=== PATIENT | female | born 1945 | race Caucasian/White ===

== ENCOUNTER 2016-03-08 14:38 | Emergency (ER) ==
[2016-03-08 14:47] VITALS: BP 121/80; TEMP 97.9; BMI 13.8
--- NOTE | 2016-03-08 15:20 | ED.PDOC ---
General ED Provider: Dr. NATASHA RUBIO Chief Complaint: Chest Wall Injury/Pain Stated Complaint: Right lower rib pain. Goes to epigastric area - heartburn. Denies falls. Movement and deep breathing makes worse. Time Seen by Physician: 15:05 Mode of Arrival: Walk-In Information Source: Patient Primary Care Provider: RUTHIE LEE Nursing and Triage Documentation Reviewed and Agree: Yes Review of Systems - Review Of Systems Constitutional: Reports: No symptoms Eyes: Reports: No symptoms Ears, Nose, Mouth, Throat: Reports: No symptoms Respiratory: Reports: No symptoms, Short of air. Denies: Cough, Orthopnea Cardiac: Reports: Chest pain (R lower rib cage) All Other Systems: Reviewed and Negative Past Medical History - Past Medical History Previously Healthy: No (COPD; multiple problems) Endocrine: Reports: None Cardiovascular: Reports: Hypertension Respiratory: Reports: COPD Hematological: Reports: None Gastrointestinal: Reports: None Genitourinary: Reports: None Neuro/Psych: Reports: Anxiety Musculoskeletal: Reports: Arthritis, Back Pain, Joint Pain Cancer: Reports: None Last Menstrual Period: unknown Other Pertinent Past Medical History: htn copd anx arth - Surgical History General Surgical History: Reports: Cholecystectomy, Orthopedic ( HIP,ANKLE ), Other (LUNG-FATTY MASS-RIGHT LUNG) - Family History Family History: Reports: Unknown - Social History Smoking Status: Current every day smoker, Heavy tobacco smoker Hx Substance Use: No Alcohol Screening: None Physical Exam - Physical Exam Appearance: Ill-appearing Ill-appearing: Moderate Eyes: KIMBERLY Respiratory: Airway patent, Breath sounds clear, Breath sounds equal GI/: Soft, Nontender Skin: Warm, Dry Neurological: Sensation intact, Motor intact Psychiatric: Affect appropriate, Mood appropriate Interpretation - EKG Interpretation Time of EKG #1: 15:36 Rate: Normal Rhythm: Sinus Ectopy: None [place]: NL ST Segment: Normal Interpretation: No acute changes Critical Care Note - Critical Care Note Total Time (mins): 15 Course - Course Hematology/Chemistry: 03/08/16 15:22 03/08/16 15:22 Orders, Labs, Meds: Lab Review 03/08/16 15:22 WBC 10.66 H RBC 3.93 L Hgb 12.0 Hct 35.5 L MCV 90.3 MCH 30.5 MCHC 33.8 RDW Coeff of Eddi 12.7 Plt Count 438 Immature Gran % (Auto) 0.8 Neut % (Auto) 76.4 Lymph % (Auto) 13.6 [place] % (Auto) 7.1 Eos % (Auto) 1.7 Baso % (Auto) 0.4 Immature Gran # (Auto) 0.1 Neut # 8.2 H Lymph # 1.5 [place]aine # 0.8 Eos # 0.2 Baso # 0.0 Sodium 139 Potassium 4.0 Chloride 102 Carbon Dioxide 28 Anion Gap 13.0 BUN 9 Creatinine 0.64 Estimated GFR (MDRD) 92.00 BUN/Creatinine Ratio 14.06 Glucose 97 Calcium 9.4 Total Bilirubin 0.29 AST 22 ALT 16 Alkaline Phosphatase 134 Troponin I 0.0100 Total Protein 7.1 Albumin 2.5 L Globulin 4.6 Albumin/Globulin Ratio 0.54 Orders Category Date Time Status EKG-(IP & OP ONLY) Stat CARDIO 03/08/16 15:18 Completed CBC W/ AUTO DIFF Stat LAB 03/08/16 15:22 Completed COMPREHENSIVE METABOLIC PANEL Stat LAB 03/08/16 15:22 Completed TROPONIN I Stat LAB 03/08/16 15:22 Completed Levofloxacin/D5w [Levaquin] 100 ml MEDS 03/08/16 17:09 Discontinued IV .STK-MED Levofloxacin/D5w [Levaquin] 500 mg MEDS 03/08/16 17:05 Discontinued Premix 100 ml D5w [address] CHEST W/CONTRAST Stat RADS 03/08/16 15:57 Completed RIBS, UNILATERAL RIGHT Stat RADS 03/08/16 15:17 Completed Medications Discontinued Medications Generic Name Dose Route Start Last Admin Trade Name Freq PRN Reason Stop Dose Admin Levofloxacin/Dextrose 500 mg/ 100 mls @ 100 mls/hr 03/08/16 17:05 03/08/16 17 :16 Dextrose IV 03/08/16 18:04 100 mls/hr ONCE STA Administration WBC at upper limits of normal with 76% neutrophils; Chest film suggests neoplasm vs consolidative pneumonia. [place] best to order CT with IV contrast as suggested by radiology versus follow up X Ray after interval treatment. Pt is a smoker with COPD history. CT shows extensive pneumonia RUL. Vital Signs: Temp Pulse Resp BP Pulse Ox 03/08/16 14:39 97.9 F 113 H 24 121/80 96 Departure - Departure Time of Disposition: 18:00 Disposition: HOME SELF-CARE Discharge Problem: Pneumonia Instructions: Pneumonia (ED) Condition: Stable Pt referred to PMD for follow-up: Yes (Call officer for appointment) Additional Instructions: Take antibiotic as prescribed. Must followup with primary care provider for resolution of pneumonia and follow up of upper lobe consolidation. Call office for appointment and advise them of the ER visit and need for followup. Prescriptions: Levofloxacin [Levaquin] 500 mg PO ONCE #7 tablet Allergies/Adverse Reactions: Allergies Penicillins Adverse Reaction (Verified 03/08/16 14:47) Pt reports "blacking out" Home Medications: Ambulatory Orders Albuterol Sulfate [Proair Hfa] 2 puff IH BID 09/29/12 Naproxen Sodium [Aleve] 220 mg PO BID PRN 09/29/12 Alprazolam 1 tab PO BID 02/10/14 Tiotropium [place] [Spiriva] 1 cap IH DAILY 02/10/14 Hydrocodone Bit/Acetaminophen [[place] 5-325] 1 each PO Q4HR PRN 01/23/16 Levofloxacin [Levaquin] 500 mg PO ONCE #7 tablet 03/08/16 Lisinopril 10 mg PO DAILY 03/08/16 Disposition Discussed With: Patient (Patient does not want admission; family aware of decision and plan for treatment)
[2016-03-08 15:27] LABS: BASOPHILS % (AUTO) 0.4 % (0.0-3.0); EOSINOPHILS # (AUTO) 0.2 K/ul (0.0-0.7); EOSINOPHILS % (AUTO) 1.7 % (0.0-7.0); HEMATOCRIT 35.5 % (37.0-47.0); IMMATURE GRANULOCYTE % (AUTO) 0.8 % (0.0-5.0); LYMPHOCYTES # (AUTO) 1.5 K/uL (0.60-3.4); LYMPHOCYTES % (AUTO) 13.6 (10.0-50.0); MEAN CORPUSCULAR HEMOGLOBIN 30.5 pg (27.0-31.0); MEAN CORPUSCULAR HGB CONC 33.8 (31.8-35.4); MEAN CORPUSCULAR VOLUME 90.3 fl (81.0-99.0); MONOCYTES # (AUTO) 0.8 K/uL (0.4-2.0); MONOCYTES % (AUTO) 7.1 (0-10); NEUTROPHILS # (AUTO) 8.2 K/ul (2.0-6.9); NEUTROPHILS % (AUTO) 76.4; PLATELET COUNT 438 10^3/uL (140-440); RED BLOOD COUNT 3.93 10^6/ul (4.20-5.40); WHITE BLOOD COUNT 10.66 K/ul (4.6-10.2)
--- NOTE | 2016-03-08 15:49 | DI ---
EXAM: Three views of the right ribs HISTORY: Pain in the lower right ribs. COMPARISON: Chest x-ray 01/23/[address] chest 12/04/2015 FINDINGS: There is a new mass-like consolidation in the right upper lobe. There is right apical ple ural thickening unchanged from prior exam. Surgical changes are redemonstrated in the right lung. The left lung is hyperinflated. Cardiomediastinal silhouette is unremarkable. The right ribs are p oorly evaluated due to hyperinflation, consolidation and bone demineralization IMPRESSION: 1. Mass-like consolidation in the right upper lobe may represent consolidative pneumonia versus jenny plasm. Follow-up CT chest with contrast versus follow-up x-ray after interval treatment is recommen ded. 2. The osseous structures are poorly evaluated due to hyperinflated lungs and bony demineralization . No definitive rib fracture is identified.
[2016-03-08 15:54] LABS: ALBUMIN 2.5 g/dL (3.4-5.0); ALBUMIN/GLOBULIN RATIO 0.54; BILIRUBIN,TOTAL 0.29 mg/dL (0.00-1.20); BUN/CREATININE RATIO 14.06; CALCIUM 9.4 mg/dL (8.2-10.2); CREATININE 0.64 mg/dL (0.60-1.30); TOTAL PROTEIN 7.1 g/dL (5.8-8.1); TROPONIN I 0.01 ng/ml (0.0000-0.4000)
--- NOTE | 2016-03-08 16:49 | CT ---
EXAM: CT chest with contrast HISTORY: Mass-like consolidation, right upper lobe TECHNIQUE: Multi-slice transaxial helical with coronal and sagittal reformed images CONTRAST: Intravenous Omnipaque 350, 75 mL COMPARISON: CT chest from 12/04/2015 FINDINGS: The aorta is minimally atherosclerotic. The aorta maintains normal caliber. The heart si ze is normal. No pericardial or pleural effusions are appreciated. A precarinal lymph node is enla rged up to 1.2 cm short axis. A right hilar lymph node is 1.9 x 1.6 cm. Additional sub centimeter mediastinal lymph nodes are detected. No left hilar lymphadenopathy detected. The lungs are severely emphysematous. There is significant consolidation in the right upper lobe. There has been previous right thoracotomy with probable partial resection of the middle lobe. The l eft lung is clear. The solid abdominal organs are grossly normal their visualized portions of the upper abdomen. The g allbladder is surgically absent. The bones are free of suspicious osteolytic or osteoblastic lesions. Old healed right rib fractures are noted. The bones are osteopenic. Multiple chronic thoracic compression deformities are unchan ged. IMPRESSION: 1. Extensive pneumonia in the right upper lobe with probable reactive right hilar lymphadenopathy a nd mediastinal lymphadenopathy. Short-term follow-up recommended as underlying malignancy cannot be excluded 2. Severe emphysema. 3. Suggestion of previous partial pneumonectomy involving the middle lobe. 4. ASCVD. 5. Osteopenia with multiple chronic thoracic compression deformities.
[2016-03-08] MEDS ORDERED: LEVAQUIN 500 MG in PREMIX 100 ML D5W 1 BAG IV STA (17:05)
[2016-03-08] MEDS ORDERED: LEVAQUIN 100 ML IV ONE (17:09)
== END 2016-03-08 18:18 | disposition home or self-care (01) ==
LOC: ED 14:38
DX: J18.9 Pneumonia, unspecified organism (principal); I10 Essential (primary) hypertension; J44.9 Chronic obstructive pulmonary disease, unspecified; F17.210 Nicotine dependence, cigarettes, uncomplicated; Z79.899 Other long term (current) drug therapy
CPT/HCPCS: 36415; 80053; 84484; 85025; 93005; 93010; 96365; 99283

== ENCOUNTER 2016-05-30 11:54 | Outpatient (CLI) ==
--- NOTE | 2016-05-30 12:50 | CT ---
EXAM: CT of the chest without contrast History: Abnormal chest radiograph, chest pain. Comparison: Chest CT 03/08/2016 Technique: Multiplanar CT images through the thorax were obtained without the administration of IV contrast Findings: Extensive right upper lobe consolidation again noted with the volume of consolidation pro bably slightly decreased compared to the prior study but there is increased in volume loss within th e right upper lobe most likely due to retraction and scarring. Emphysema again noted which is severe . Postsurgical changes again seen involving the right middle lobe. Heart size is normal. Mild coronary calcifications. Great vessels are grossly unremarkable on this limited noncontrast exam. No pathologically enlarged axillary lymph nodes. Evaluation for mediast inal and hilar lymph nodes is limited due to the lack of contrast administration but no bulky adenop athy is seen. Within the visualized upper abdomen, no grossly acute findings. No significant interval change in t he spinal compression deformities. There is osseous irregularity of a few anterior right ribs most likely related to subacute fractures. Impression: 1. Extensive right upper lobe consolidation again noted with the volume of the consolidation slightl y decreased. However, there is an increase in volume loss within the right upper lobe most likely du e to retraction and scarring. 2. Severe emphysema again noted.
== END 2016-05-30 11:55 | disposition home or self-care (01) ==
LOC: RAD 11:54
PROVIDERS: ATTEND Internal Medicine Pulmonary Disease
DX: R91.8 Other nonspecific abnormal finding of lung field (principal)

== ENCOUNTER 2016-07-08 17:00 | Emergency (ER) ==
[2016-07-08 17:06] VITALS: BP 135/81; TEMP 98.7; BMI 14.2
[2016-07-08] MEDS ORDERED: GI COCKTAIL PO STA (17:15)
[2016-07-08 17:41] LABS: BASOPHILS % (AUTO) 0.3 % (0.0-3.0); EOSINOPHILS # (AUTO) 0.5 K/ul (0.0-0.7); EOSINOPHILS % (AUTO) 6.7 % (0.0-7.0); HEMATOCRIT 42.8 % (37.0-47.0); HEMOGLOBIN 14.4 g/dl (12.0-16.0); IMMATURE GRANULOCYTE % (AUTO) 0.3 % (0.0-5.0); LYMPHOCYTES # (AUTO) 2.5 K/uL (0.60-3.4); LYMPHOCYTES % (AUTO) 35.4 (10.0-50.0); MEAN CORPUSCULAR HEMOGLOBIN 30.1 pg (27.0-31.0); MEAN CORPUSCULAR HGB CONC 33.6 (31.8-35.4); MEAN CORPUSCULAR VOLUME 89.5 fl (81.0-99.0); MONOCYTES # (AUTO) 0.9 K/uL (0.4-2.0); MONOCYTES % (AUTO) 12.6 (0-10); NEUTROPHILS # (AUTO) 3.1 K/ul (2.0-6.9); NEUTROPHILS % (AUTO) 44.7; PLATELET COUNT 188 10^3/uL (140-440); RED BLOOD COUNT 4.78 10^6/ul (4.20-5.40); WHITE BLOOD COUNT 7.01 K/ul (4.6-10.2)
--- NOTE | 2016-07-08 17:41 | CT ---
EXAM: CT chest without contrast HISTORY: Chest pain after eating donut TECHNIQUE: Multi-slice transaxial helical with coronal and sagittal reformed images CONTRAST: None COMPARISON: CT chest from 05/30/2016 FINDINGS: The aorta is atherosclerotic. The ascending aorta is ectatic to 32 mm. The aortic arch a nd descending thoracic aorta have normal caliber. The heart size is normal. No pericardial or pleu ral effusions are detected. No suspicious lymphadenopathy is appreciated. Volume loss in the right upper lobe lung fibrosis is unchanged. Air bronchograms are associated. The lungs are moderately to severely emphysematous.. There is calcified pleural plaque in the right lung. No suspicious nod ules or masses are detected. Please refer to the CT abdomen report for details in this region. The bones are free of suspicious osteolytic or osteoblastic lesions. Old healed right rib fractures are noted. Chronic compression fractures between T6 and T9 are unchanged with secondary increased thoracic kyphosis. Additional chronic fractures are noted at T12 and L1. The bones are osteopenic. IMPRESSION: 1. Fibrosis and chronic volume loss in the right upper lobe. 2. Moderate severe emphysema. 3. No acute cardiopulmonary disease.
--- NOTE | 2016-07-08 17:44 | CT ---
Exam: CT scan of the abdomen pelvis without contrast. Date: 07/08/2016. Comparison: 07/27/2015. HISTORY: Pain after eating. TECHNIQUE: Helical scan of the abdomen pelvis was performed without contrast. FINDINGS: The lung bases are clear. There is a levoscoliotic curve in the lumbar spine with multil evel degenerative changes. There are compression deformities of T12 and L1 that appear to be old. A left hip arthroplasty is present. The spleen and liver have a uniform attenuation; there is elongation of the left lobe of the liver w hich is a normal variant. The stomach, pancreas and adrenal glands appear normal. The kidneys have a normal morphology. No calculi or hydronephrosis is seen. No retroperitoneal adenopathy is prese nt. Aorta has peripheral calcification and does not exceed 3 cm. The small bowel and colon appear w ithin normal limits. Streak artifact from the left hip arthroplasty obscures the findings in the pe lvis. The inguinal regions are normal. Impression: Image detail is limited due to a lack of oral and intravenous contrast, with incomplete evaluation of the contents of the pelvis as a consequence of extensive streak artifact from the lef t hip arthroplasty. No acute findings are observed. Compression deformities of T12 and L1 that appear to be old. If further evaluation of this finding is needed then MRI may be of value. .
[2016-07-08 18:07] LABS: ALANINE AMINOTRANSFERASE 14 U/L (12-78); ALBUMIN 3.6 g/dL (3.4-5.0); ALBUMIN/GLOBULIN RATIO 1.13; ALKALINE PHOSPHATASE 84 U/L (53-141); AMYLASE 90 U/L (25-115); ANION GAP 13.1; ASPARTATE AMINO TRANSFERASE 20 U/L (15-37); BILIRUBIN,TOTAL 0.56 mg/dL (0.00-1.20); BLOOD UREA NITROGEN 13 mg/dL (7-18); CALCIUM 10.1 mg/dL (8.2-10.2); CARBON DIOXIDE 25 mmol/L (23-31); CHLORIDE 106 mmol/L (98-107); CREATINE KINASE 43 U/L; CREATININE 0.73 mg/dL (0.60-1.30); GLUCOSE 74 mg/dL (82-115); LIPASE 57 U/L (8-78); POTASSIUM 4.1 mmol/L (3.5-5.10); SODIUM 140 mmol/L (136-145); TOTAL PROTEIN 6.8 g/dL (5.8-8.1)
--- NOTE | 2016-07-08 18:31 | ED.PDOC ---
General ED Provider: Dr. HAYDEN GUPTA-ER Chief Complaint: Non-specific Complaint Stated Complaint: i ate a doughnut and it "got stuck"--it hurts anytime i swallow food or drink Time Seen by Physician: 17:05 Mode of Arrival: Walk-In Information Source: Patient, Family Exam Limitations: No limitations Primary Care Provider: RUTHIE LEE Nursing and Triage Documentation Reviewed and Agree: Yes GI Complaint Exam - Abdominal Pain Complaint/Exam Onset: Gradual Duration: 2 dasys Symptoms Are: Still present Timing: Intermittent Initial Severity: Mild Current Severity: Mild Location of Pain: Epigastric Character: Reports: Dull, Aching Aggravating: Reports: Food, Eating Alleviating: Reports: Spontaneous resolution Associated Signs and Symptoms: Denies: Diaphoresis, Fever, Cough, Chest pain, Dizziness, Back pain, Constipation, Blood in stool, Dysuria, Urinary frequency, Decreased urine output, Decreased appetite, Vaginal bleeding, Vaginal discharge , Nausea, Vomiting, Diarrhea, Sore throat, Decreased activity AAA Risk Factors: Reports: None Patient Rh Status: Unknown Abdominal Findings: Present: None Differential Diagnoses: Constipation, Pancreatitis, Other Quality Indicator For Non-Traumatic Chest Pain/Syncope: EKG Performed Review of Systems - Review Of Systems Constitutional: Reports: No symptoms Eyes: Reports: No symptoms Ears, Nose, Mouth, Throat: Reports: No symptoms Respiratory: Reports: No symptoms Cardiac: Reports: No symptoms GI: Reports: Abdominal pain : Reports: No symptoms Musculoskeletal: Reports: No symptoms Skin: Reports: No symptoms Neurological: Reports: No symptoms Endocrine: Reports: No symptoms Hematologic/Lymphatic: Reports: No symptoms All Other Systems: Reviewed and Negative Past Medical History - Past Medical History Previously Healthy: No (COPD; multiple problems) Endocrine: Reports: None Cardiovascular: Reports: Hypertension Respiratory: Reports: COPD Hematological: Reports: None Gastrointestinal: Reports: None Genitourinary: Reports: None Neuro/Psych: Reports: Anxiety Musculoskeletal: Reports: Arthritis, Back Pain, Joint Pain Cancer: Reports: None Last Menstrual Period: n/a Other Pertinent Past Medical History: htn copd anx arth - Surgical History General Surgical History: Reports: Cholecystectomy, Orthopedic ( HIP,ANKLE ), Other (LUNG-FATTY MASS-RIGHT LUNG) - Family History Family History: Reports: Unknown - Social History Smoking Status: Current every day smoker, Heavy tobacco smoker Hx Substance Use: No Alcohol Screening: None Physical Exam - Physical Exam Appearance: Well-appearing, No pain distress, Well-nourished Pain Distress: Mild Eyes: KIMBERLY, EOMI, Conjunctiva clear ENT: Ears normal, Nose normal, Oropharynx normal Neck: Supple Respiratory: Airway patent, Breath sounds clear, Breath sounds equal, Respirations nonlabored Cardiovascular: RRR, Pulses normal, No rub, No murmur GI/: Soft Musculoskeletal: Normal strength, ROM intact, No edema, No calf tenderness Skin: Warm, Dry, Normal color Neurological: Sensation intact, Motor intact, Reflexes intact, Cranial nerves intact, Alert, Oriented Psychiatric: Affect appropriate, Mood appropriate Interpretation - Radiology Interpretation Radiology Interpretation By: Radiologist Radiology Results: Negative Exam Interpreted: CT Scan - EKG Interpretation Time of EKG #1: 18:31 Rate: Normal Rhythm: Sinus Ectopy: None [place]: NL ST Segment: Normal Re-Evaluation - Re-Evaluation Time of Re-Evaluation: 18:31 Status: Improved Vital Signs Stable: Yes Pain Level: 1 Appearance: NAD Lungs: Clear Skin: Warm and Dry Neuro: Alert and Oriented X3 CV: RRR Critical Care Note - Critical Care Note Total Time (mins): 0 Course - Course Hematology/Chemistry: 07/08/16 17:30 07/08/16 17:30 Orders, Labs, Meds: Lab Review 07/08/16 17:30 WBC 7.01 RBC 4.78 Hgb 14.4 Hct 42.8 MCV 89.5 MCH 30.1 MCHC 33.6 RDW Coeff of Eddi 13.3 Plt Count 188 Immature Gran % (Auto) 0.3 Neut % (Auto) 44.7 Lymph % (Auto) 35.4 [place] % (Auto) 12.6 H Eos % (Auto) 6.7 Baso % (Auto) 0.3 Immature Gran # (Auto) 0.0 Neut # 3.1 Lymph # 2.5 [place] # 0.9 Eos # 0.5 Baso # 0.0 Sodium 140 Potassium 4.1 Chloride 106 Carbon Dioxide 25 Anion Gap 13.1 BUN 13 Creatinine 0.73 Estimated GFR (MDRD) 79.00 BUN/Creatinine Ratio 17.80 Glucose 74 L Calcium 10.1 Total Bilirubin 0.56 AST 20 ALT 14 Alkaline Phosphatase 84 Total Creatine Kinase 43 Troponin I < 0.0100 Total Protein 6.8 Albumin 3.6 Globulin 3.2 Albumin/Globulin Ratio 1.13 Amylase 90 Lipase 57 Orders Category Date Time Status EKG-(ED ONLY) Stat CARDIO 07/08/16 17:14 Completed AMYLASE Stat LAB 07/08/16 17:30 Completed CBC W/ AUTO DIFF Stat LAB 07/08/16 17:30 Completed COMPREHENSIVE METABOLIC PANEL Stat LAB 07/08/16 17:30 Completed CREATINE KINASE Stat LAB 07/08/16 17:30 Completed LIPASE Stat LAB 07/08/16 17:30 Completed TROPONIN I Stat LAB 07/08/16 17:30 Completed Mag-Al Plus//Lidocaine [Gi Cocktail] MEDS 07/08/16 17:15 Discontinued 30 ml PO ONCE STA CT ABDOMEN/PELVIS WO CONTRAST Stat RADS 07/08/16 17:[address] CHEST W/O CONTRAST Stat RADS 07/08/16 17:15 Completed Medications Discontinued Medications Generic Name Dose Route Start Last Admin Trade Name Freq PRN Reason Stop Dose Admin Al Hydroxide/Mg Hydroxide 30 ml 07/08/16 17:15 07/08/16 17:37 Gi Cocktail PO 07/08/16 17:16 30 ml ONCE STA Administration Vital Signs: Temp Pulse Resp BP Pulse Ox 07/08/16 17:03 98.7 F 100 H 14 135/81 96 Departure - Departure Time of Disposition: 18:31 Disposition: HOME SELF-CARE Discharge Problem: Esophagitis Dysphagia Qualifiers: Dysphagia type: unspecified Qualifier Code: (R13.10) Dysphagia, unspecified Instructions: Esophageal Spasm (ED), Dysphagia (ED) Condition: Good Pt referred to PMD for follow-up: Yes Additional Instructions: stop alleve--protonix 40mg q daily #30--carafate 1gr tid #30--f/u with dr garcia- -consider endoscopy if not done recently Allergies/Adverse Reactions: Allergies Penicillins Adverse Reaction (Verified 07/08/16 17:06) Pt reports "blacking out" Home Medications: Ambulatory Orders Albuterol Sulfate [Proair Hfa] 2 puff IH BID 09/29/12 Naproxen Sodium [Aleve] 220 mg PO BID PRN 09/29/12 Alprazolam 1 tab PO BID 02/10/14 Tiotropium [place] [Spiriva] 1 cap IH DAILY 02/10/14 Hydrocodone Bit/Acetaminophen [[place] 5-325] 1 each PO Q4HR PRN 01/23/16 Lisinopril 10 mg PO DAILY 03/08/16 Disposition Discussed With: Patient, Family
== END 2016-07-08 18:44 | disposition home or self-care (01) ==
LOC: ED 17:00
DX: K20.9 Esophagitis, unspecified (principal); R13.10 Dysphagia, unspecified; R10.13 Epigastric pain; F17.200 Nicotine dependence, unspecified, uncomplicated
CPT/HCPCS: 36415; 80053; 82150; 82550; 83690; 84484; 85025; 93005; 93010; 99283

== ENCOUNTER 2016-09-16 22:04 | Emergency (ER) ==
[2016-09-16 22:14] VITALS: BP 134/84; TEMP 97.9; BMI 14.6
--- NOTE | 2016-09-16 22:28 | ED.PDOC ---
General ED Provider: Dr. RUTHIE LEE Chief Complaint: Shoulder Pain/Injury Stated Complaint: Been hurting in the rt shoulder for 3 weeks, no injury hurts to raise the rt shoulder, Time Seen by Physician: 22:25 Mode of Arrival: Walk-In Information Source: Patient Primary Care Provider: ALIZA BERG Nursing and Triage Documentation Reviewed and Agree: Yes Musculoskeletal Complaint Exam - Shoulder Pain Complaint/Exam Mechanism of Injury: Reports: No known trauma Symptoms Are: Still present Timing: Constant Initial Severity: Moderate Current Severity: Moderate Location: Reports: Discrete Character: Reports: Aching, Throbbing Alleviating: Reports: None Aggravating: Reports: Movement, Lifting, Flexion, Extension Associated Signs and Symptoms: Denies: Swelling, Redness, Bruising, Fever, Weakness, Numbness, Tingling Non-Orthopedic Risk Factors: Reports: None DVT Risk Factors: Reports: None Septic Arthritis Risk Factors: Reports: None Related Surgical History: Reports: None Shoulder Findings: Absent: Swelling, Ecchymosis, Abnormal contour Tenderness: Present: AC joint, Proximal humerus Limited Range of Motion: Present: Abduction, Flexion, Extension, External rotation Differential Diagnoses: Arthritis, Closed Fracture, Sprain Review of Systems - Review Of Systems Constitutional: Reports: No symptoms Eyes: Reports: No symptoms Ears, Nose, Mouth, Throat: Reports: No symptoms Respiratory: Reports: No symptoms Cardiac: Reports: No symptoms GI: Reports: No symptoms : Reports: No symptoms Musculoskeletal: Reports: Joint pain Skin: Reports: No symptoms Neurological: Reports: No symptoms Endocrine: Reports: No symptoms Hematologic/Lymphatic: Reports: No symptoms All Other Systems: Reviewed and Negative Past Medical History - Past Medical History Previously Healthy: No (COPD; multiple problems) Endocrine: Reports: None Cardiovascular: Reports: Hypertension Respiratory: Reports: COPD Hematological: Reports: None Gastrointestinal: Reports: None Genitourinary: Reports: None Neuro/Psych: Reports: Anxiety Musculoskeletal: Reports: Arthritis, Back Pain, Joint Pain Cancer: Reports: None Last Menstrual Period: PT HAS HAD A HYSTERECTOMY Other Pertinent Past Medical History: htn copd anx arth - Surgical History General Surgical History: Reports: Cholecystectomy, Orthopedic ( HIP,ANKLE ), Other (LUNG-FATTY MASS-RIGHT LUNG) - Family History Family History: Reports: Unknown - Social History Smoking Status: Current every day smoker, Light tobacco smoker Hx Substance Use: No Alcohol Screening: None - Immunizations Tetanus Shot up to Date: Yes Physical Exam - Physical Exam Appearance: Ill-appearing, Thin Pain Distress: Moderate Eyes: KIMBERLY, EOMI, Conjunctiva clear ENT: Ears normal, Nose normal, Oropharynx normal Respiratory: Airway patent, Breath sounds clear, Breath sounds equal, Respirations nonlabored Cardiovascular: RRR, Pulses normal, No rub, No murmur GI/: Soft, Nontender, No masses, Bowel sounds normal, No Organomegaly Musculoskeletal: No edema, No calf tenderness, Limited ROM, Limited strength Skin: Warm, Dry, Normal color Neurological: Sensation intact, Motor intact, Reflexes intact, Cranial nerves intact, Alert, Oriented Psychiatric: Affect appropriate, Mood appropriate Interpretation - Radiology Interpretation Radiology Interpretation By: Radiologist Radiology Results: Negative Exam Interpreted: CT Scan Critical Care Note - Critical Care Note Total Time (mins): 0 Course - Course Orders, Labs, Meds: Orders Category Date Time Status Ketorolac Tromethamine [Toradol] MEDS 09/16/16 23:22 Stat 30 mg IM ONCE STA CT SHOULDER RIGHT W/O CONTRAST Stat RADS 09/16/16 22:19 Completed Vital Signs: Temp Pulse Resp BP Pulse Ox 09/16/16 22:05 97.9 F 90 20 134/84 98 Departure - Departure Time of Disposition: 23:23 Disposition: HOME SELF-CARE Discharge Problem: Shoulder pain Instructions: Shoulder Pain (ED) Condition: Good Pt referred to PMD for follow-up: Yes Additional Instructions: rest hot pack keep taking pain medications f/u dr Berg for further evaluation Allergies/Adverse Reactions: Allergies Penicillins Adverse Reaction (Verified 09/16/16 22:14) Pt reports "blacking out" Home Medications: Ambulatory Orders Albuterol Sulfate [Proair Hfa] 2 puff IH BID 09/29/12 Naproxen Sodium [Aleve] 220 mg PO BID PRN 09/29/12 Alprazolam 1 tab PO BID 02/10/14 Tiotropium [place] [Spiriva] 1 cap IH DAILY 02/10/14 Hydrocodone Bit/Acetaminophen [[place] 5-325] 1 each PO TID PRN 01/23/16 Disposition Discussed With: Patient
--- NOTE | 2016-09-16 23:14 | CT ---
EXAM: CT of the right shoulder without contrast. HISTORY: Shoulder pain. PROCEDURE: Contiguous axial CT images of the right shoulder without contrast with coronal and sagit lenin reformats. FINDINGS: The bones are intact with no evidence of fracture. The joint spaces are maintained. No ev idence of a destructive bone lesion. No soft tissue abnormality. There is extensive consolidation in the right upper lobe. There are severe emphysematous changes in the visualized portion of the ri ght lung. Impression: Negative CT of the right shoulder. Extensive consolidation in the right lung/upper lobe. Please see report from CT chest of 08/28/2016 for further details. Chronic obstructive pulmonary disease.
[2016-09-16] MEDS: TORADOL IM STA (23:52)
== END 2016-09-16 23:59 | disposition home or self-care (01) ==
LOC: ED 22:04
DX: M25.511 Pain in right shoulder (principal); F17.210 Nicotine dependence, cigarettes, uncomplicated
CPT/HCPCS: 96372; 99282

== ENCOUNTER 2016-11-25 10:08 | Emergency (ER) ==
[2016-11-25 10:13] VITALS: BP 179/90; TEMP 97.5; BMI 13.5
--- NOTE | 2016-11-25 10:24 | ED.PDOC ---
General ED Provider: Dr. CIELO SALOMON Chief Complaint: Hip Pain/Injury Stated Complaint: HIP PAIN LEFT Time Seen by Physician: 10:10 Mode of Arrival: Walk-In Information Source: Patient Exam Limitations: No limitations Primary Care Provider: ALIZA BERG Nursing and Triage Documentation Reviewed and Agree: Yes Musculoskeletal Complaint Exam - Hip/Pelvis Complaint/Exam Location of Pain: Reports: Left, Hip Mechanism of Injury: Reports: Trauma Onset/Duration: FALL 1 WEEK AGO Symptoms Are: Still present Initial Severity: Mild Current Severity: Mild Location: Reports: Discrete Character: Reports: Aching Aggravating: Reports: Movement Alleviating: Reports: Rest, Position Associated Signs and Symptoms: Denies: Swelling, Redness, Bruising, Fever, Weakness, Dizziness, Syncope, Abdominal pain, Knee pain Related History: Reports: Similar episode Able to Bear Weight: Yes Pelvis Palpation: Stable Differential Diagnoses: Sprain, Strain Review of Systems - Review Of Systems Constitutional: Reports: No symptoms Eyes: Reports: No symptoms Ears, Nose, Mouth, Throat: Reports: No symptoms Respiratory: Reports: No symptoms Cardiac: Reports: No symptoms GI: Reports: No symptoms : Reports: No symptoms Musculoskeletal: Reports: Joint pain (LEFT HIP) Skin: Reports: No symptoms Neurological: Reports: No symptoms Endocrine: Reports: No symptoms Hematologic/Lymphatic: Reports: No symptoms All Other Systems: Reviewed and Negative Past Medical History - Past Medical History Previously Healthy: No (COPD; multiple problems) Endocrine: Reports: None Cardiovascular: Reports: Hypertension Respiratory: Reports: COPD Hematological: Reports: None Gastrointestinal: Reports: None Genitourinary: Reports: None Neuro/Psych: Reports: Anxiety Musculoskeletal: Reports: Arthritis, Back Pain, Joint Pain Cancer: Reports: None Last Menstrual Period: NONE Other Pertinent Past Medical History: htn copd anx arth - Surgical History General Surgical History: Reports: Cholecystectomy, Orthopedic ( HIP,ANKLE ), Other (LUNG-FATTY MASS-RIGHT LUNG) - Family History Family History: Reports: Unknown - Social History Smoking Status: Current every day smoker, Light tobacco smoker Hx Substance Use: No Alcohol Screening: None Physical Exam - Physical Exam Appearance: Well-appearing, No pain distress, Well-nourished Eyes: KIMBERLY, EOMI, Conjunctiva clear ENT: Ears normal, Nose normal, Oropharynx normal Respiratory: Airway patent, Breath sounds clear, Breath sounds equal, Respirations nonlabored Cardiovascular: RRR, Pulses normal, No rub, No murmur GI/: Soft, Nontender, No masses, Bowel sounds normal, No Organomegaly Musculoskeletal: Normal strength, ROM intact, No edema, No calf tenderness Skin: Warm, Dry, Normal color Neurological: Sensation intact, Motor intact, Reflexes intact, Cranial nerves intact, Alert, Oriented Psychiatric: Affect appropriate, Mood appropriate Interpretation - Radiology Interpretation Radiology Interpretation By: Radiologist Critical Care Note - Critical Care Note Total Time (mins): 0 Course - Course Vital Signs: Temp Pulse Resp BP Pulse Ox 11/25/16 10:09 97.5 F L 100 H 20 179/90 H 97 Departure - Departure Time of Disposition: 10:24 Disposition: HOME SELF-CARE Discharge Problem: Hip pain Instructions: Hip Pain (ED) Condition: Good Pt referred to PMD for follow-up: Yes Additional Instructions: Please call your Family Physician as soon as possible to schedule a follow-up appointment. Allergies/Adverse Reactions: Allergies Penicillins Adverse Reaction (Verified 11/25/16 10:13) Pt reports "blacking out" Home Medications: Ambulatory Orders Albuterol Sulfate [Proair Hfa] 2 puff IH BID 09/29/12 Alprazolam 1 tab PO BID 02/10/14 Tiotropium [place] [Spiriva] 1 cap IH DAILY 02/10/14 Hydrocodone Bit/Acetaminophen [[place] 5-325] 1 each PO TID PRN 01/23/16 Disposition Discussed With: Patient
[2016-11-25] MEDS ORDERED: NORCO 10-325 PO STA (10:26)
--- NOTE | 2016-11-25 10:56 | DI ---
EXAM: Radiographs, pelvis HISTORY: Pelvic pain. COMPARISON: CT 07/08/2016. Radiograph 05/09/2015 TECHNIQUE: Single frontal view. FINDINGS: The bones are demineralized. Left hip arthroplasty changes noted. No fracture or disloca tion identified. Soft tissues are unremarkable. Since the prior study, there has been no significant interval change. IMPRESSION: No fracture or dislocation.
--- NOTE | 2016-11-25 10:57 | DI ---
EXAM: Radiographs, left hip HISTORY: Left hip pain. COMPARISON: Pelvic CT 07/08/2016. Radiograph 05/09/2015. TECHNIQUE: Frontal and lateral views. FINDINGS: Left total hip arthroplasty hardware components appear well seated. No fracture or disloc ation identified. Soft tissues are unremarkable. Since the prior study, there has been no significa nt interval change. IMPRESSION: No acute abnormality of the left hip.
== END 2016-11-25 11:02 | disposition home or self-care (01) ==
LOC: ED 10:08
DX: M25.552 Pain in left hip (principal); F17.210 Nicotine dependence, cigarettes, uncomplicated
CPT/HCPCS: 99282

== ENCOUNTER 2016-12-31 15:03 | Outpatient (CLI) ==
[2016-12-31 15:22] LABS: BASOPHILS # (AUTO) 0.1 K/uL (0-0.2); BASOPHILS % (AUTO) 0.7 % (0.0-3.0); EOSINOPHILS # (AUTO) 0.8 K/ul (0.0-0.7); EOSINOPHILS % (AUTO) 11.5 % (0.0-7.0); HEMATOCRIT 45.3 % (37.0-47.0); HEMOGLOBIN 15.4 g/dl (12.0-16.0); IMMATURE GRANULOCYTE % (AUTO) 0.1 % (0.0-5.0); LYMPHOCYTES # (AUTO) 2.6 K/uL (0.60-3.4); LYMPHOCYTES % (AUTO) 37.1 (10.0-50.0); MEAN CORPUSCULAR HEMOGLOBIN 31.2 pg (27.0-31.0); MEAN CORPUSCULAR VOLUME 91.7 fl (81.0-99.0); MONOCYTES # (AUTO) 0.8 K/uL (0.4-2.0); MONOCYTES % (AUTO) 11.1 (0-10); NEUTROPHILS # (AUTO) 2.7 K/ul (2.0-6.9); NEUTROPHILS % (AUTO) 39.5; PLATELET COUNT 195 10^3/uL (140-440); RED BLOOD COUNT 4.94 10^6/ul (4.20-5.40); WHITE BLOOD COUNT 6.87 K/ul (4.6-10.2)
[2016-12-31 16:18] LABS: ALBUMIN 3.6 g/dL (3.4-5.0); ALBUMIN/GLOBULIN RATIO 0.97; ANION GAP 11.2; BILIRUBIN,TOTAL 0.66 mg/dL (0.00-1.20); BUN/CREATININE RATIO 16.9; CHOL/HDL RATIO 3.3 (4.5-5.5); CREATININE 0.71 mg/dL (0.60-1.30); POTASSIUM 4.2 mmol/L (3.5-5.10); TOTAL PROTEIN 7.3 g/dL (5.8-8.1)
== END 2016-12-31 15:04 | disposition home or self-care (01) ==
LOC: LAB 15:03
PROVIDERS: ATTEND Internal Medicine
DX: J44.9 Chronic obstructive pulmonary disease, unspecified (principal); I10 Essential (primary) hypertension; M81.0 Age-related osteoporosis without current pathological fracture; I25.10 Atherosclerotic heart disease of native coronary artery without angina pectoris; M19.90 Unspecified osteoarthritis, unspecified site; F41.1 Generalized anxiety disorder
CPT/HCPCS: 36415; 80053; 80061; 82607; 84443; 85025

== ENCOUNTER 2017-04-29 14:41 | Outpatient (CLI) | END 2017-04-29 14:42 | disposition home or self-care (01) | LOC: LAB 14:41 | PROVIDERS: ATTEND Internal Medicine | DX: E03.9 Hypothyroidism, unspecified (principal); I10 Essential (primary) hypertension; J44.9 Chronic obstructive pulmonary disease, unspecified; R91.8 Other nonspecific abnormal finding of lung field | CPT/HCPCS: 36415; 80053; 80061; 83036; 84443; 85025 ==

== ENCOUNTER 2017-05-05 12:55 | Emergency (ER) ==
[2017-05-05 13:08] VITALS: BP 170/87; TEMP 99; BMI 14.6
--- NOTE | 2017-05-05 13:48 | CT ---
EXAM: CT of the chest without contrast History: Chest wall trauma. Comparison: Chest CT 02/19/2017 Technique: Multiplanar CT images through the thorax were obtained without the administration of IV co ntrast Findings: Heart size is normal. No pericardial effusion. No pathologically enlarged thoracic lymph nodes. Great vessels are unremarkable. Emphysema again noted. No change in the chronic right upper lobe scarring and consolidation with bronchiectasis and cavitation. No significant interval change i n the 1.4 cm right lateral lower lung pleural based nodular density. Resolved lingular nodular densi ty. No developing lung opacities. No pneumothorax. Within the visualized upper abdomen, no acute findings. Osteopenia. No change in the chronic compre ssion deformities within the spine. Impression: 1. No new acute intrathoracic findings. 2. Stable chronic right upper lobe infiltrate. 3. No change in the right lateral lower lung pleural based nodular density. Recommend follow-up [facility] CT in 6 months. 4. Emphysema
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
== END 2017-05-05 14:17 | disposition home or self-care (01) ==
LOC: ED 12:55
DX: R07.89 Other chest pain (principal); X50.9XXA Other and unspecified overexertion or strenuous movements or postures, initial encounter; F17.210 Nicotine dependence, cigarettes, uncomplicated
CPT/HCPCS: 99283

== ENCOUNTER 2017-09-08 10:41 | Outpatient (CLI) | END 2017-09-08 10:42 | disposition home or self-care (01) | LOC: LAB 10:41 | PROVIDERS: ATTEND Internal Medicine | DX: E03.9 Hypothyroidism, unspecified (principal); E53.8 Deficiency of other specified B group vitamins; I10 Essential (primary) hypertension; J44.9 Chronic obstructive pulmonary disease, unspecified; F17.210 Nicotine dependence, cigarettes, uncomplicated | CPT/HCPCS: 36415; 80053; 80061; 83036; 84439; 84443; 85025 ==

== ENCOUNTER 2017-09-12 17:54 | Emergency (ER) ==
[2017-09-12 17:59] VITALS: BP 123/89; TEMP 98.5; BMI 13.9
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
== END 2017-09-12 18:25 | disposition home or self-care (01) ==
LOC: ED 17:54
DX: S73.102A Unspecified sprain of left hip, initial encounter (principal); V43.62XA Car passenger injured in collision with other type car in traffic accident, initial encounter; F17.210 Nicotine dependence, cigarettes, uncomplicated
CPT/HCPCS: 99283

== ENCOUNTER 2017-09-19 09:14 | Outpatient (CLI) ==
--- NOTE | 2017-09-19 10:37 | DI ---
EXAM: Single view of the pelvis. History: Pelvic pain. Comparison: Pelvic radiograph 11/25/2016 Findings: Osteopenia. Stable and grossly intact left total hip arthroplasty hardware. Evaluation o f the sacrum is limited due to obscuration by bowel gas. No grossly displaced fractures are identifi ed. No dislocation. Scattered colonic stool. Impression: No acute findings. If symptoms persist, recommend further evaluation with CT.
--- NOTE | 2017-09-19 10:54 | DI ---
EXAM: Two views of the left hip. History: Left hip pain. Findings: Osteopenia. Grossly intact left total hip arthroplasty hardware. No acute fracture or di slocation. Evaluation of the sacrum is limited due to obscuration by bowel gas. Impression: No acute osseous abnormality
--- NOTE | 2017-09-19 10:55 | DI ---
EXAM: Three views of the lumbar spine. History: Lower back pain. Comparison: Lumbar spine radiograph 07/15/2015, CT lumbar spine 07/19/2015 Findings: Atherosclerotic vascular calcifications. Osteopenia. Stable chronic compression deformit y at L1. No new acute fractures are identified. No subluxation. Partially visualized left total hi p arthroplasty hardware. Mild multilevel degenerative disc space narrowing. Impression: Stable chronic compression deformity at L1. No acute fractures identified.
--- NOTE | 2017-09-19 10:56 | DI ---
EXAM: Two views of the chest. History: Chest pain. Comparison: Chest radiograph 06/13/2016, chest CT 05/20/2017 Findings: Heart size is within normal limits. Emphysema. No significant interval change in the chr onic right upper lobe consolidation and scarring. No developing opacities. No appreciable pleural f luid and no pneumothorax. No acute osseous abnormalities. Healing sternal manubrial fracture. Impression: No significant interval change in the chronic right upper lobe consolidation and scarrin g. No developing opacities. Emphysema.
== END 2017-09-19 09:15 | disposition home or self-care (01) ==
LOC: RAD 09:14
PROVIDERS: ATTEND Internal Medicine
DX: M25.552 Pain in left hip (principal); M54.5 Low back pain; R05 Cough

== ENCOUNTER 2018-02-20 09:08 | Outpatient (CLI) ==
--- NOTE | 2018-02-20 11:53 | CT ---
EXAM: CT of the chest with contrast History: Cough and congestion, lung mass. Comparison: Chest CT 05/20/2017 Technique: Multiplanar CT images through the thorax were obtained following administration of IV con trast Findings: Heart size is normal. Great vessels are unremarkable. No pathologically enlarged thoracic lymph nodes. Severe emphysema again noted. No change in the chronic right apical consolidation wit h areas of cavitation. No significant interval change in the 1.5 cm x 0.8 cm right lower lung pleura l based opacity. No developing lung masses or lung nodules. Within the visualized upper abdomen, no acute findings. The visualized osseous structures unchanged with no acute osseous abnormalities identified. Stable chronic compression deformities within the sp ine. Healed fracture of the manubrium. Impression: 1. No change in the chronic right apical consolidation with areas of cavitation. 2. No change in the right lower lung pleural based nodular opacity. Recommend follow-up chest CT in 6 months to document stability. 3. Emphysema
== END 2018-02-20 09:09 | disposition home or self-care (01) ==
LOC: RAD 09:08
PROVIDERS: ATTEND Internal Medicine
DX: R91.8 Other nonspecific abnormal finding of lung field (principal)
CPT/HCPCS: 36415; 82565

== ENCOUNTER 2018-04-07 00:08 | Emergency (ER) ==
[2018-04-07 00:25] VITALS: BP 159/84; TEMP 98.5; BMI 14.3
[2018-04-07] MEDS ORDERED: TORADOL IM STA (00:41)
--- NOTE | 2018-04-07 00:41 | ED.PDOC ---
General ED Provider: Dr. HAYDEN VILLA MD Chief Complaint: Extremity Swelling/Pain Stated Complaint: right knee leg pain today Time Seen by Physician: 00:38 Mode of Arrival: Walk-In Information Source: Patient Exam Limitations: No limitations Primary Care Provider: ALIZA BERG Nursing and Triage Documentation Reviewed and Agree: Yes Does patient meet sepsis criteria?: No If yes, has appropriate treatment been initiated?: Yes System Inflammatory Response Syndrome: Not Applicable Sepsis Protocol: For patient's 13 years and over: Temp is 96.8 and below OR 101 and greater Pulse >90 BPM Resp >20/minute Acutely Altered Mental Status Are patient's symptoms suggestive of a new infection, such as: -Pneumonia -Skin, Soft Tissue -Endocarditis -UTI -Bone, Joint Infection -Implantable Device -Acute Abdominal Infection -Wound Infection -Meningitis -Blood Stream Catheter Infection -Unknown Review of Systems - Review Of Systems Constitutional: Reports: No symptoms Eyes: Reports: No symptoms Ears, Nose, Mouth, Throat: Reports: No symptoms Respiratory: Reports: No symptoms Cardiac: Reports: No symptoms GI: Reports: No symptoms : Reports: No symptoms Musculoskeletal: Reports: Joint pain (r Knee) Skin: Reports: No symptoms Neurological: Reports: No symptoms Endocrine: Reports: No symptoms Hematologic/Lymphatic: Reports: No symptoms All Other Systems: Reviewed and Negative Past Medical History - Past Medical History Previously Healthy: No (COPD; multiple problems) Endocrine: Reports: None Cardiovascular: Reports: Hypertension Respiratory: Reports: COPD Hematological: Reports: None Gastrointestinal: Reports: None Genitourinary: Reports: None Neuro/Psych: Reports: Anxiety Musculoskeletal: Reports: Arthritis, Back Pain, Joint Pain Cancer: Reports: None Last Menstrual Period: hyst Other Pertinent Past Medical History: htn copd anx arth - Surgical History General Surgical History: Reports: Cholecystectomy, Orthopedic ( HIP,ANKLE ), Other (LUNG-FATTY MASS-RIGHT LUNG) - Family History Family History: Reports: Unknown - Social History Smoking Status: Current every day smoker, Light tobacco smoker Hx Substance Use: No Alcohol Screening: None - Immunizations Tetanus Shot up to Date: Yes Physical Exam - Physical Exam Appearance: Thin, Cachectic Ill-appearing: Mild Pain Distress: Mild Eyes: KIMBERLY, EOMI, Conjunctiva clear ENT: Ears normal, Nose normal, Oropharynx normal Neck: Supple Respiratory: Airway patent Cardiovascular: RRR, Pulses normal, No rub, No murmur GI/: Soft, Nontender, No masses, Bowel sounds normal, No Organomegaly Musculoskeletal: No calf tenderness, Limited ROM, Limited strength (Right Knee mild pain with ROM, no swelling) Skin: Warm, Dry, Normal color Neurological: Sensation intact, Motor intact, Reflexes intact, Cranial nerves intact, Alert, Oriented Psychiatric: Affect appropriate, Mood appropriate Critical Care Note - Critical Care Note Total Time (mins): 0 Course - Course Vital Signs: Temp Pulse Resp BP Pulse Ox 04/07/18 00:12 98.5 F 92 H 18 159/84 H 96 Departure - Departure Time of Disposition: 01:00 Disposition: HOME SELF-CARE Discharge Problem: Right knee sprain Instructions: Knee Sprain (ED) Condition: Good Pt referred to PMD for follow-up: Yes IPMP verified?: No Allergies/Adverse Reactions: Allergies Penicillins Adverse Reaction (Verified 04/07/18 00:25) Pt reports "blacking out" Home Medications: Ambulatory Orders Albuterol Sulfate [Proair Hfa] 2 puff IH BID 09/29/12 Alprazolam 1 tab PO BID 02/10/14 Tiotropium [place] [Spiriva] 1 cap IH DAILY 02/10/14 Levothyroxine Sodium [Synthroid] 75 mcg PO QDAC 05/05/17 Hydrocodone/Acetaminophen [[place] 5-325 Tablet] 1 each PO Q6HR PRN #12 tablet 04/27 Gabapentin [Neurontin] 100 mg PO BID 04/07/18 Transfer Form Completed: No Disposition Discussed With: Patient
== END 2018-04-07 01:25 | disposition home or self-care (01) ==
LOC: ED 00:08
DX: M25.561 Pain in right knee (principal); M25.461 Effusion, right knee; S83.91XA Sprain of unspecified site of right knee, initial encounter
CPT/HCPCS: 96372; 99282

== ENCOUNTER 2018-04-15 13:02 | Outpatient (CLI) | END 2018-04-15 13:03 | disposition home or self-care (01) | LOC: LAB 13:02 | PROVIDERS: ATTEND Internal Medicine | DX: E03.9 Hypothyroidism, unspecified (principal); I10 Essential (primary) hypertension; J44.9 Chronic obstructive pulmonary disease, unspecified | CPT/HCPCS: 36415; 80053; 80061; 83036; 84439; 84443; 85025 ==

== ENCOUNTER 2018-09-21 14:25 | Emergency (ER) ==
[2018-09-21 14:30] VITALS: BP 128/82; TEMP 98.1; BMI 13.4
--- NOTE | 2018-09-21 15:55 | CT ---
EXAM: CT scan of the chest without contrast HISTORY: Fall, chest wall pain TECHNIQUE: Helical imaging of the chest was performed without contrast. 5 mm thin axial images and coronal and sagittal reconstructions were provided for interpretation. Comparison 02/20/2018. FINDINGS: Consolidative and cavitary changes are again seen in the right upper lobe of the lung. Em physematous changes are again seen throughout the lungs. There is stable appearance of a nodular den sity seen in the subpleural lateral right lung base seen on axial image number 40 measuring up to 1.5 cm AP maximum. Heart is normal size. There is no pleural separation. There is stable appearance o f chronic appearing compression deformities seen throughout the thoracic spine. The spinous processe s are intact. IMPRESSION: No acute traumatic abnormalities are seen. Stable appearance of consolidative and cavitary changes seen in the right upper lobe of the lung. Pulmonary emphysema. Stable appearance of a nodular density seen in the lateral right lung base.
--- NOTE | 2018-09-21 16:08 | ED.PDOC ---
General ED Provider: Dr. CIELO SALOMON Chief Complaint: Chest Wall Injury/Pain Stated Complaint: a 60 pound dog jummped on her chest Time Seen by Physician: 14:30 Mode of Arrival: Walk-In Information Source: Patient Exam Limitations: No limitations Primary Care Provider: ALIZA BERG Nursing and Triage Documentation Reviewed and Agree: Yes Does patient meet sepsis criteria?: No System Inflammatory Response Syndrome: Not Applicable Sepsis Protocol: For patient's 13 years and over: Temp is 96.8 and below OR 101 and greater Pulse >90 BPM Resp >20/minute Acutely Altered Mental Status Are patient's symptoms suggestive of a new infection, such as: -Pneumonia -Skin, Soft Tissue -Endocarditis -UTI -Bone, Joint Infection -Implantable Device -Acute Abdominal Infection -Wound Infection -Meningitis -Blood Stream Catheter Infection -Unknown Trauma/Injury Complaint Exam - Trauma Complaint/Exam Location of Pain or Injury: Reports: Chest. Denies: Head, Scalp, Face, Neck, RUE, LUE, Abdomen, Back, RLE, LLE Symptoms Are: Still present Initial Severity: Mild Current Severity: Mild Aggravating: Reports: None Alleviating: Reports: None Associated Signs and Symptoms: Denies: LOC, Confusion, Memory loss, Lethargy, Vomiting, Bleeding, Bruising, Swelling, Extremity disuse, Painful respiration, Hoarseness, Dysphagia, Hemoptysis, Significant blood loss Penetrating Injury Risk Factors: Reports: None Related Surgical History: Reports: None Nexus Low Risk Criteria: No post-midline CS tender, No evidence of intoxicat., No Altered LOC, No focal neuro deficit, No distracting injuries Glascow Coma Scale (see protocol): 15 Trauma Findings: Absent: [place] eyes, Hemotympanum, Nasal deformity, Dental tenderness, Dental injury, Dental malocclusion, Neck tenderness, Neck spasm, SubQ Air, Crepitus, Airway obstructed, Trachea displaced, Labored respirations, Decreased breath sounds, Muffled heart sounds, Weak pulses, Absent pulses, Abdominal distention, Pelvic tenderness, Pelvic instability Skin Findings: Present: Normal findings Differential Diagnoses: Abrasion, Fracture, Sprain, Strain Review of Systems - Review Of Systems Constitutional: Reports: No symptoms Eyes: Reports: No symptoms Ears, Nose, Mouth, Throat: Reports: No symptoms Respiratory: Reports: No symptoms Cardiac: Reports: Chest pain (wall right sided ) GI: Reports: No symptoms : Reports: No symptoms Musculoskeletal: Reports: No symptoms Skin: Reports: No symptoms Neurological: Reports: No symptoms Endocrine: Reports: No symptoms Hematologic/Lymphatic: Reports: No symptoms All Other Systems: Reviewed and Negative Past Medical History - Past Medical History Previously Healthy: No (COPD; multiple problems) Endocrine: Reports: None Cardiovascular: Reports: Hypertension Respiratory: Reports: COPD Hematological: Reports: None Gastrointestinal: Reports: None Genitourinary: Reports: None Neuro/Psych: Reports: Anxiety Musculoskeletal: Reports: Arthritis, Back Pain, Joint Pain Cancer: Reports: None Last Menstrual Period: NA Other Pertinent Past Medical History: htn copd anx arth - Surgical History General Surgical History: Reports: Cholecystectomy, Orthopedic ( HIP,ANKLE ), Other (LUNG-FATTY MASS-RIGHT LUNG) - Family History Family History: Reports: Unknown - Social History Smoking Status: Current every day smoker Hx Substance Use: No Alcohol Screening: None - Immunizations Tetanus Shot up to Date: Yes Physical Exam - Physical Exam Appearance: Well-appearing, No pain distress, Well-nourished Eyes: KIMBERLY, EOMI, Conjunctiva clear ENT: Ears normal, Nose normal, Oropharynx normal Respiratory: Airway patent, Breath sounds clear, Breath sounds equal, Respirations nonlabored Cardiovascular: RRR, Pulses normal, No rub, No murmur GI/: Soft, Nontender, No masses, Bowel sounds normal, No Organomegaly Musculoskeletal: Normal strength, ROM intact, No edema, No calf tenderness Skin: Warm, Dry, Normal color Neurological: Sensation intact, Motor intact, Reflexes intact, Cranial nerves intact, Alert, Oriented Psychiatric: Affect appropriate, Mood appropriate Interpretation - Radiology Interpretation Radiology Interpretation By: Radiologist Radiology Results: Positive (CAVITARY LUNG LE) Critical Care Note - Critical Care Note Total Time (mins): 0 Course - Course Hematology/Chemistry: 09/21/18 16:17 09/21/18 16:17 Orders, Labs, Meds: Lab Review 09/21/18 09/21/18 16:17 16:17 WBC 4.27 L RBC 5.15 Hgb 16.2 H Hct 47.6 H MCV 92.4 MCH 31.5 H MCHC 34.0 RDW Coeff of Eddi 12.1 Plt Count 158 Immature Gran % (Auto) 0.5 Neut % (Auto) 35.7 Lymph % (Auto) 40.5 [place] % (Auto) 17.6 H Eos % (Auto) 5.2 Baso % (Auto) 0.5 Immature Gran # (Auto) 0.0 Neut # (Auto) 1.5 L Lymph # (Auto) 1.7 [place] # (Auto) 0.8 Eos # (Auto) 0.2 Baso # (Auto) 0.0 Sodium 139.9 Potassium 4.23 Chloride 102.3 Carbon Dioxide 31.0 H Anion Gap 10.83 BUN 12.1 Creatinine 0.67 Estimated GFR (MDRD) 87.00 BUN/Creatinine Ratio 18.05 Glucose 74.4 Calcium 9.30 Total Bilirubin 0.83 AST 41.3 H ALT 20.2 Alkaline Phosphatase 88.4 Total Protein 7.10 Albumin 4.05 Globulin 3.05 Albumin/Globulin Ratio 1.32 Orders Category Date Time Status NPO REMINDER: IMAGING ONCE CARE 09/21/18 16:09 Active ED IV/MEDIPORT/POWERPORT .ONCE EMERGENCY 09/21/18 16:08 Active CBC W/ AUTO DIFF Stat LAB 09/21/18 16:17 Completed COMPREHENSIVE METABOLIC PANEL Stat LAB 09/21/18 16:17 Completed 0.9 % Sodium Chloride [Saline Flush] MEDS 09/21/18 16:08 Active 1 syr IVF PRN PRN CT ABDOMEN/PELVIS W CONTRAST Stat RADS 09/21/18 16:[address] ABDOMEN/PELVIS WO CONTRAST Stat RADS 09/21/18 14:[address] CHEST W/O CONTRAST Stat RADS 09/21/18 14:40 Completed Medications Generic Name Dose Route Start Last Admin Trade Name Freq PRN Reason Stop Dose Admin Sodium Chloride 1 syr 09/21/18 16:08 Saline Flush IVF PRN PRN To flush IV Vital Signs: Temp Pulse Resp BP Pulse Ox 09/21/18 14:25 98.1 F 102 H 20 128/82 94 L Departure - Departure Time of Disposition: 17:41 Disposition: HOME SELF-CARE Discharge Problem: Chest wall pain, Chest pain Instructions: Acute Abdominal Pain (ED), Chest Wall Pain (ED) Condition: Good Pt referred to PMD for follow-up: Yes IPMP verified?: No Additional Instructions: Follow up with family dr in 3 days if no better Allergies/Adverse Reactions: Allergies Penicillins Adverse Reaction (Verified 09/21/18 14:44) Pt reports "blacking out" Home Medications: Ambulatory Orders Alprazolam 1 tab PO BID 02/10/14 Levothyroxine Sodium [Synthroid] 75 mcg PO QDAC 05/05/17 Hydrocodone/Acetaminophen [[place] 5-325 Tablet] 1 each PO Q6HR PRN #12 tablet 04/27 Gabapentin [Neurontin] 100 mg PO BID 04/07/18 Albuterol Sulfate [Albuterol Sulfate Hfa] 8.5 inhaler IN BID 09/21/18
--- NOTE | 2018-09-21 16:14 | CT ---
EXAM: CT abdomen pelvis without contra HISTORY: Injury COMPARISON: 07/08/2016 TECHNIQUE: CT abdomen pelvis performed without intravenous contrast. Coronal and sagittal reformatt ed images obtained. FINDINGS: Please refer to separate report CT chest regarding findings in the lower chest, noting a r ight basilar nodular opacity. No free air. Left hip arthroplasty. No acute abnormalities of the christa isidoro. Mild chronic compression deformities T12 and L1 appear unchanged. Evaluation organ parenchyma limited without contrast. Liver is enlarged. Gallbladder not visualized. Pancreas poorly visualize d, grossly unremarkable. Spleen unremarkable. Adrenals unremarkable. Mild right renal atrophy. No hydronephrosis or nephrolithiasis. Aorta normal in caliber. Bladder partially obscured secondary t o streak artifact from hip arthroplasty. No definitive lymphadenopathy, noting lack of intravenous c ontrast and paucity of intra-abdominal fat limits evaluation. Stomach unremarkable. No dilated loop s small bowel. Appendix not visualized. Colon unremarkable. No ascites identified. Area of high de nsity right pelvis anterior to the bladder image 60 measures 4.3 cm. This most likely represent bowel . IMPRESSION: 1. Area of high density in the right pelvis anterior to the bladder most likely represents bowel; ho wever, evaluation is significantly limited without contrast and a hematoma cannot be excluded. Corre lation with CT abdomen pelvis with contrast recommended. 2. Hepatomegaly. 3. Please refer to separate report CT chest regarding findings in the lower chest, noting a right ba silar nodular opacity. Finding called to Dr. Adames 4:05 p.m. 09/21/2018
--- NOTE | 2018-09-21 17:12 | CT ---
EXAM: CT of the abdomen pelvis with contrast History: Right upper quadrant abdominal pain, abdominal trauma. Comparison: CT abdomen pelvis 09/21/2018 Technique: Multiplanar CT images through the abdomen pelvis were obtained following administration o f IV contrast Findings: Lung bases are free of consolidation. The visualized osseous structures unchanged. Left hip arthroplasty hardware again seen. Stable compression fracture at L1. The liver is enlarged. There is periportal edema within the liver. Spleen is upper limits of normal in size. No renal masses. Lack of intraperitoneal body fat makes evaluation difficult. No obvious pancreatic lesions. No focal liver or splenic lesions. Cholecystectomy clips. The adrenal glands are not well seen. No bowel obstruction. No free air and no ascites. No bladder wall thickening. No pelvic masses. No grossly enlarged lymph nodes. No abdominal aortic aneurysm. There is submucos al edema involving the stomach wall. There is also mild submucosal edema involving the small bowel a nd colon. Impression: 1. Mild diffuse gastroenterocolitis. No bowel obstruction. 2. No pelvic masses. 3. Hepatomegaly and periportal edema within the liver
== END 2018-09-21 17:48 | disposition home or self-care (01) ==
LOC: ED 14:25
DX: S29.9XXA Unspecified injury of thorax, initial encounter (principal); R07.89 Other chest pain; W54.1XXA Struck by dog, initial encounter; F17.210 Nicotine dependence, cigarettes, uncomplicated; I10 Essential (primary) hypertension; J44.9 Chronic obstructive pulmonary disease, unspecified; Z79.899 Other long term (current) drug therapy
CPT/HCPCS: 36415; 80053; 85025; 99283

== ENCOUNTER 2018-10-13 14:21 | Outpatient (CLI) | END 2018-10-13 14:22 | disposition home or self-care (01) | LOC: LAB 14:21 | PROVIDERS: ATTEND Internal Medicine | DX: E03.9 Hypothyroidism, unspecified (principal); J44.9 Chronic obstructive pulmonary disease, unspecified; D75.1 Secondary polycythemia; R63.4 Abnormal weight loss | CPT/HCPCS: 36415; 80053; 80061; 83036; 84439; 84443; 85025 ==

== ENCOUNTER 2018-12-31 10:54 | Observation (INO) ==
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
--- NOTE | 2018-12-31 11:54 | DI ---
EXAM: Frontal chest HISTORY: Shortness of breath FINDINGS: Compared to 01/16/2018. Heart size remains within normal limits. Significant opacificati on in the right apex is unchanged. Lungs reveal evidence of emphysema although are otherwise clear. No visible pleural fluid or vascular congestion IMPRESSION: 1. Significant right apical opacity although unchanged since at least 01/16/2018. This could repres ent scarring. Underlying pathology including neoplasia or pneumonia is not excluded. Lungs reveal e vidence of significant emphysema although are otherwise clear. Managing the patient on a clinical ba sis is recommended.
--- NOTE | 2018-12-31 12:24 | CT ---
EXAM: CT BRAIN HISTORY: Dizziness, left arm numbness, headache in the frontal region, uncontrolled blood pressure TECHNIQUE: CT brain without intravenous contrast. 5-mm axial sections with Reformations. COMPARISON: None FINDINGS: There is generalized atrophy. There is at least moderate periventricular and deep white matter low a ttenuation which although nonspecific is suggestive of chronic microvascular ischemic change. There is a 4 x 10 mm discoid focus of near CSF density in the left periventricular deep white matter which is probably chronic infarction. Brain otherwise was unremarkable without evidence of hemorrhage or large vessel distribution recent i schemic infarction. There is no suggestion of acute hydrocephalus or subdural fluid collection. No mass or mass effect. Cranium has no acute finding. Mastoid processes are aerated. The visualized paranasal sinuses are clear. IMPRESSION: Involutional changes including chronic microvascular ischemic change and generalized atr ophy. There is a 4 x 10 mm discoid focus of near CSF attenuation in the left deep periventricular wh ite matter which is probably chronic infarction. No intracranial hemorrhage or convincing evidence o f recent ischemic infarction.
[2018-12-31] MEDS ORDERED: ANTIVERT PO PRN (13:29)
--- NOTE | 2018-12-31 14:26 | US ---
EXAM: Bilateral carotid artery Doppler History: Dizziness. Technique: Multiple sonographic images through the bilateral internal carotid arteries were obtained . Color duplex Doppler was used to interrogate vascular flow. Findings: The right ICA peak systolic velocity is within normal limits measuring 72 cm/sec. The right ICA/cca PSV ratio is normal at 1.4. The right vertebral artery is patent and demonstrates antegrade flow. G ray scale images demonstrate mild plaque buildup within the right internal carotid artery. The left ICA peak systolic velocity is within normal limits measuring 92 cm/sec. The left ICA/cca PS V ratio is normal at 1.7. The left vertebral artery is patent and demonstrates antegrade flow. Belcher scale images demonstrate mild plaque buildup within the left internal carotid artery Impression: No significant hemodynamic stenosis of the bilateral internal carotid arteries
[2018-12-31 14:47] VITALS: BMI 13.4
[2018-12-31] MEDS: LOVENOX SUBCUT SCH (16:38)
[2018-12-31] MEDS ORDERED: ALBUTEROL SULFATE IN SCH (21:00)
[2018-12-31] MEDS: NEURONTIN PO SCH (21:22)
[2018-12-31] MEDS: XANAX PO SCH (21:22)
[2018-12-31] MEDS: PROAIR HFA IH SCH (21:23)
[2018-12-31] MEDS: NORCO 5-325 PO PRN (21:24)
[2019-01-01] MEDS ORDERED: SYNTHROID PO SCH (06:30)
[2019-01-01] MEDS ORDERED: DECADRON 4 MG/ML SDV IM STA (08:29)
[2019-01-01] MEDS: XANAX PO SCH (09:21)
[2019-01-01] MEDS: PROAIR HFA IH SCH (09:21)
[2019-01-01] MEDS: NORCO 5-325 PO PRN (09:21)
[2019-01-01] MEDS: NEURONTIN PO SCH (09:21)
[2019-01-01] MEDS: LOVENOX SUBCUT SCH (09:22)
--- NOTE | 2019-01-01 13:21 | HP ---
DATE OF SERVICE: 12/31/18 HISTORY OF PRESENT ILLNESS: 73-year-old white female who presented to the emergency room complaining of dizzy, light-headedness, near syncopal episode. PAST MEDICAL HISTORY: Coronary artery disease Hypertension COPD History of lung mass, supposed to follow with Dr. Young although she is noncompliant Cachexia Osteoporosis Osteoarthritis Depression Anxiety Chronic back pain Heavy smoker PAST SURGICAL HISTORY: Cholecystectomy Tonsillectomy Hysterectomy REVIEW OF SYSTEMS: CONSTITUTIONAL: No night sweats. No fatigue, malaise, lethargy. No fever or chills. HEENT: Eyes: No visual changes. No eye pain. No eye discharge. ENT: No runny nose. No epistaxis. No sinus pain. No sore throat. No odynophagia. No ear pain. No congestion. RESPIRATORY: No cough, no congestion. No hemoptysis. No shortness of breath. CARDIOVASCULAR: No angina symptoms. No CHF symptoms. No atypical chest pain for CAD. No palpitations. No PND. No orthopnea. GASTROINTESTINAL: No abdominal pain. No nausea or vomiting. No diarrhea or constipation. No hematemesis. No hematochezia. GENITOURINARY: No urgency. No frequency. No dysuria. No hematuria. No obstructive symptoms. No discharge. No pain. No significant abnormal bleeding. MUSCULOSKELETAL: No musculoskeletal pain. No joint swelling. No arthritis. NEUROLOGICAL: Positive for dizziness, lightheadedness and weakness. No headache. No neck pain. No syncope. No seizures. PSYCHIATRIC: Not anxious. No depression. No suicidal thoughts. No homicidal thoughts. SKIN: No rash. No lesions. No wounds. ENDOCRINE: No unexplained weight loss. No weight gain. HEMATOLOGIC/LYMPHATIC: No anemia. No purpura. No petechiae. No prolonged or excessive bleeding. No palpable lymph nodes. PERSONAL/FAMILY/SOCIAL HISTORY: She is a very heavy smoker. No alcohol or illicit drug use. She lives at home with multiple family members. MEDICATIONS: (HOME) Alprazolam 0.5 mg one tab p.o. b.i.d. Levothyroxine 75 mcg p.o. q.d a.c. Hydrocodone-Acetaminophen one each p.o. q.6hr p.r.m. Gabapentin 100 mg p.o. b.i.d. Albuterol inhaler 8.5 gm b.i.d. ALLERGIES: PENICILLIN PHYSICAL EXAMINATION: GENERAL: The patient is alert and oriented times three. VITAL SIGNS: Temperature 96.8, heart rate 95, respirations 20, BP 132/81, pulse ox 95% on room air. HEENT: Head normocephalic, atraumatic. Eyes: Extraocular muscles are intact. Pupils are equal, round and reactive to light and accommodation. Ears: No lesions. Nose appeared normal. Throat: No exudate or erythema. NECK: Supple. No JVD, no carotid bruit. No lymphadenopathy or thyromegaly. LUNGS: Diminished breath sounds bilaterally. Percussion note normal. Chest symmetrical. HEART: S1, S2, no S3. No murmur. No cyanosis or clubbing. No ascites. Pulses: Dorsalis pedis and posterior tibial pulses +1 to +2 bilaterally. ABDOMEN: Soft. Nontender. Bowel sounds active. No CVA tenderness. No mass felt. EXTREMITIES: No leg edema. Full range of motion of all extremities, equal. NEUROLOGIC: No focal deficit. Cranial nerves II through XII are grossly intact. No headache, no double vision or headache. SKIN: Not dry. Intact. Turgor - normal. LYMPHATIC: No palpable lymph nodes/no lymphedema. MUSCULOSKELETAL: Normal joints with no swelling. Muscle tone is normal. LAB/IMAGING: Carotid doppler shows no carotid stenosis. CT of the brain shows chronic microvascular disease, possibility of a chronic infarction in the left deep periventricular white matter. No evidence of recent infarction. Cardiac enzymes are normal. Urine is negative. Chest x-ray shows right apical opacity which is a known lung mass. She is supposed to see Dr. Young the vocational technical education director. Sodium 139, potassium 4.4, BUN 12, creatinine 0.5, AST 30, ALT 17. White count 8, hemoglobin 15, hematocrit 46, platelets 165. ASSESSMENT: 1. DIZZINESS 2. ACUTE SYNCOPAL EPISODE 3. KNOWN RIGHT APICAL LUNG MASS, UNCHANGED 4. SEVERE COPD 5. HISTORY OF CORONARY ARTERY DISEASE PLAN: 1. We will admit. 2. Routine telemetry orders. 3. CBC, CMP daily. 4. Oxygen at 1 to 2L as needed. 5. NS at 75 cc/hr IV. 6. Antivert 25 mg t.i.d. p.r.n. p.o. 7. Valium 2 mg t.i.d. p.r.n. p.o. 8. Will follow her closely. TIME SPENT: More than 70 minutes. RANI
--- NOTE | 2019-01-01 13:53 | PN ---
DATE OF SERVICE: 01/01/19 SUBJECTIVE: She is up and about doing well. Dizziness with no black out. Her problem is nutritional. She is heavy smoker and doesn't eat. She is underweight and strongly advised to eat. Telemetry shows sinus rhythm. No arrhythmias. Cardiovascular status is stable with no evidence of acute CO or acute myocardial event or neurological event. Her neurological status is completely normal. She is going to have an echo and then going to be discharged. Carotid scan was normal. The patient was seen and examined with the Nurse Practitioner. TIME SPENT: More than 30 minutes. Plan and coordination of the patient's care discussed in the presence of nurse. RANI
[2019-01-01 14:17] VITALS: BP 142/72; TEMP 97.8
--- NOTE | 2019-01-01 14:23 | CM.DICTOOL ---
ADMISSION: 12/31/18 13:44 DISCHARGE: JANUARY 01, 2019 DATE OF SERVICE: 01/01/19 FINAL DIAGNOSIS DIZZINESS NEAR SYNCOPE SEVERE EMPHYSEMA HISTORY OF LUNG MASS (NO LONGER SEES PULMONOLOGY) HYPOTHYROID HYPERTENSION CORONARY ARTERY DISEASE CACHEXIA OSTEOARTHRITIS OSTEOPOROSIS CHRONIC BACK PAIN (PAIN MANAGEMENT) LEFT HIP REPLACEMENT BONE GRAFT, RIGHT FOOT/ANKLE CHOLECYSTECTOMY HYSTERECTOMY REMOVAL RIGHT LUNG MASS CONTINUED SMOKING PFT: 2014 MODERATE COPD LAST VITALS Temp Pulse Resp BP Pulse Ox 98.6 F 62 16 102/68 96 01/01/19 10:00 01/01/19 10:00 01/01/19 10:00 01/01/19 10:00 01/01/19 10:00 TAKE THESE MEDICATIONS AT HOME Hydrocodone Bitart/Acetaminophen ([place] 5-325) 1 tab PO Q6HR PRN PRN Reason: Pain Last Admin: 01/01/19 09:21 Dose: 1 tab Documented by: Albuterol Sulfate (Proair Hfa) 2 puff IH BID [facility] Last Admin: 01/01/19 09:21 Dose: 2 puff Documented by: Alprazolam (Xanax) 0.5 mg PO BID [facility] Last Admin: 01/01/19 09:21 Dose: 0.5 mg Documented by: Gabapentin (Neurontin) 100 mg PO BID [facility] Last Admin: 01/01/19 09:21 Dose: 100 mg Documented by: Levothyroxine Sodium (Synthroid) 75 mcg PO QDAC [facility] Last Admin: 01/01/19 05:32 Dose: 75 mcg Documented by: Meclizine HCl (Antivert) 25 mg PO TID PRN PRN Reason: Vertigo ALLERGIES Penicillins Adverse Reaction (Verified 12/31/18 11:07) Pt reports "blacking out" Discontinued Medications NONE NEW PRESCRIPTIONS: ANTIVERT 25 MG TID PRN DIZZINESS SMOKING: ADVISED TO STOP SMOKING DISEASE SPECIFIC EDUCATION: DIZZINESS; POSITION CHANGES NUTRITION; EAT REGULAR MEALS AND SNACKS APPOINTMENT LAB REVIEW: 01/01/19 05:43 01/01/19 05:43 01/01/19 05:43: TSH 0.649 01/01/19 05:43: Free T4 1.55 01/01/19 05:43: Sodium 137.7, Potassium 3.95, Chloride 106.1, Carbon Dioxide 28.2, Anion Gap 7.35, BUN 16.6, Creatinine 0.59 L, Estimated GFR (MDRD) 100.00, BUN/Creatinine Ratio 28.13, Glucose 85.6, Calcium 9.33, Total Bilirubin 0.74, AST 30.6, ALT 16.2, Alkaline Phosphatase 71.3, Total Protein 6.51, Albumin 3.57, Globulin 2.94, Albumin/Globulin Ratio 1.21 01/01/19 05:43: WBC 7.02, RBC 4.61, Hgb 14.3, Hct 42.8, MCV 92.8, MCH 31.0, MCHC 33.4, RDW Coeff of Eddi 11.7, Plt Count 155, Immature Gran % (Auto) 0.1, Neut % (Auto) 26.4, Lymph % (Auto) 33.0, [place] % (Auto) 8.8, Eos % (Auto) 31.1 H, Baso % (Auto) 0.6, Immature Gran # (Auto) 0.0, Neut # (Auto) 1.9 L, Lymph # (Auto) 2.3, [place] # (Auto) 0.6, Eos # (Auto) 2.2 H, Baso # (Auto) 0.0 IMAGE REVIEW: DISCHARGE HOME DIET: REGULAR DIET TOLERATED; EAT REGULAR MEALS AND SNACKS DAILY ACTIVITY: GRADUALLY RESUME ACTIVITY TOLERATED CHANGE POSITIONS SLOWLY AVOID DRIVING IF EXPERIENCING DIZZINESS CONTINUE MEDICATIONS LISTED ON NURSING DISCHARGE INFORMATION SHEET AN APPOINTMENT IS SCHEDULED WITH DR. BERG/SHANIA WEBER APRN ON January AT 10 AM CODE STATUS: FULL CODE MRS. HOLGUIN IS ALERT AND ORIENTED X 4. SHE DENIES DIZZINESS AT REST OR WITH AMBULATION. SHE IS INDEPENDENT WITH ACTIVITIES OF DAILY LIVING. SHE LIVES AT HOME WITH HER SPOUSE AND ADULT SON, BOTH ARE AVAILABLE TO HELP IN THE HOME. SHE REPORTS SHE HASN'T BEEN DRIVING LATELY, BUT RELIES ON HER SPOUSE AND SON FOR TRANSPORTATION. MEAL INTAKES ARE APPROXIMATELY 50%, LIQUID INTAKE IS GOOD. SHE IS CONTINENT OF BOWEL AND BLADDER. SHE IS THIN, CACHEXIC IN APPEARANCE. SKIN IS INTACT. MRS. HOLGUIN REPORTS SHE HAS A CANE AVAILABLE FOR HER USE IN THE HOME. SHE DOES NOT USE OXYGEN OR NEBULIZER TREATMENTS. SHE ALSO REPORTS SHE HASN'T SEEN THE DECAL CUTTER SINCE THE summer. (STOPPED ON HER OWN). MD SHANIA VALDERRAMA, TRAVEL INSURANCE AGENT
--- NOTE | 2019-01-01 15:43 | DI ---
EXAM: Left shoulder three views HISTORY: Shoulder pain FINDINGS: Bones are demineralized. Nonstandard patient positioning limits the exam. There is no con vincing evidence of dislocation or fracture. There is at least mild osteoarthritis of the shoulder j oints. Right apical pulmonary opacification is similar to that seen on prior radiography of 01/01/20 19 IMPRESSION: 1. No fracture or dislocation. There is at least mild osteoarthritis of the shoulder joints.
--- NOTE | 2019-01-01 15:45 | DI ---
EXAM: Cervical spine five views HISTORY: Cervical spine pain. FINDINGS: Bones are demineralized. There is exaggerated lordosis of the cervical spine. Multilevel mild listhesis is noted most apparent at C5/C6 where there is anterior spondylolisthesis of C5 relat ca to C6 by 3 mm. There is no acute fracture suggested. No scoliosis. Oblique views revealed no s ignificant bony encroachment upon the neural foramen. There is diffuse degenerative disc and facet d isease which is moderate to severe. Consolidative process in the right lung apex. IMPRESSION: 1. Diffuse degenerative changes. No acute radiographic findings.
--- NOTE | 2019-01-04 10:41 | ECHO2D ---
Date of Exam: 01/01/19 Ordering Physician: DR. ALIZA BERG Room #: 121 Reason for Echo: DIZZINESS, COPD, NEAR SYNCOPE, HEAVY SMOKER M-Mode Normal Adult Results LV Dimensions Normal Adult Results AoV Opening excursions >1.6 >1.6 LVEDD-base- 3.5-5.8 3.7 Ao root dimensions 2.0-3.7 2.3 LVESD-base- 3.1-4.6 L. Atrium dimensions 1.9-3.8 3.8 Post. Wall thickness 0.8-1.1 0.9 IV septum (thickness) 0.7-1.2 0.9 Post. Wall excursion 0.72-1.3 NORMAL Septal motion NORMAL Systolic motion R. Ventricular cavity 1.5-2.0 3.0 LVEF 60% 69% Paradoxical septal wall motion NORMAL 2-D : 2-D M Mode Echocardiogram was performed using apical four chamber and left parasternal long and short axis views. Mitral, tricuspid and aortic valves appear to be normal. Contractility of the left ventricle seems to be normal, so is the cavity size. Left atrial cavity size and aortic root appear to be normal. There is no pericardial effusion. There is no thrombus noted in the left ventricle or left atrial cavity. No mitral valve prolapse noted. RIGHT VENTRICLE CAVITY ENLARGEMENT. M-MODE: MV: DIFFICULT--BUT MAYBE MITRAL VALVE PROLAPSE AV: NORMAL TV: NORMAL PV: NORMAL CHAMBER SIZE: RIGHT VENTRICLE CAVITY ENLARGEMENT WALL MOTION: NORMAL PERICARDIUM: NORMAL INTERPRETATION: 1. RIGHT VENTRICLE CAVITY ENLARGEMENT 2. VALVES--NORMAL 3. NORMAL LEFT VENTRICULAR CONTRACTILITY 4. MAYBE MITRAL VALVE PROLAPSE--NO MITRAL REGURGITATION SUBCOSTAL APPROACH WAS USED BECAUSE OF SEVERE COPD MTDD
--- NOTE | 2019-01-04 13:25 | PN ---
DATE OF SERVICE: 12/31/18 SUBJECTIVE: The patient was seen and examined today in room 121. The patient was hospitalized through the emergency room. She almost blacked out standing near the sink this morning. She sat down, no real complete black out. She didn't have any chest pain, no PND, no orthopnea. The patient felt light headed. The patient is under weight and smokes heavy and doesn't eat regularly. Entire workup including CT scan of the head, carotid scan, EKG and chest x-ray all negative. Electrolytes and a CBC with differential normal. The patient is going to undergo echocardiogram and telemetry monitoring throughout the day. She is going to be admitted under observation. REVIEW OF SYSTEMS: CONSTITUTIONAL: No night sweats. No fatigue, malaise, lethargy. No fever or chills. HEENT: Eyes: No visual changes. No eye pain. No eye discharge. ENT: No runny nose. No epistaxis. No sinus pain. No sore throat. No odynophagia. No congestion. RESPIRATORY: No cough, no congestion. No hemoptysis. No shortness of breath. CARDIOVASCULAR: No angina symptoms. No CHF symptoms. No atypical chest pain for CAD. No palpitations. No PND. No orthopnea. GASTROINTESTINAL: No abdominal pain. No nausea or vomiting. No diarrhea or constipation. No hematemesis. No hematochezia. GENITOURINARY: No urgency. No frequency. No dysuria. No hematuria. No obstructive symptoms. No discharge. No pain. No significant abnormal bleeding. MUSCULOSKELETAL: No musculoskeletal pain; no joint swelling. NEUROLOGICAL: No headache. No neck pain. No syncope. No seizures. No dizziness. PSYCHIATRIC: Not anxious. No depression. No suicidal thoughts. No homicidal thoughts. SKIN: No rash. No lesions. No wounds. ENDOCRINE: No unexplained weight loss. No weight gain. HEMATOLOGIC/LYMPHATIC: No anemia. No purpura. No petechiae. No prolonged or excessive bleeding. No palpable lymph nodes. PHYSICAL EXAMINATION: HEENT: Head normocephalic, atraumatic. Eyes: Extraocular muscles are intact. Pupils are equal, round and reactive to light and accommodation. Ears: No lesions. Nose appeared normal. Throat: No exudate or erythema. Face: Symmetrical. NECK: Supple. No JVD, no carotid bruit. No lymphadenopathy or thyromegaly. LUNGS: Clear to auscultation. Percussion note normal. Chest symmetrical. HEART: S1, S2, no S3. No murmurs. No cyanosis or clubbing. No ascites. Pulses: Dorsalis pedis and posterior tibial pulses +1 to +2 bilaterally. ABDOMEN: Soft. Nontender. Bowel sounds active. No CVA tenderness. No mass felt. EXTREMITIES: No edema. Full range of motion of all extremities, equal. NEUROLOGIC: No focal deficit. Cranial nerves II through XII are grossly intact. No headache, no double vision or headache. SKIN: Not dry. Intact. Turgor - normal. LYMPHATIC: No palpable lymph nodes/no lymphedema. MUSCULOSKELETAL: Normal joints with no swelling. Muscle tone is normal. Deep tendon reflexes and motor sensory normal. The patient is walking. ASSESSMENT: 1. Near syncopal episode, etiology likely hypoglycemia versus postural hypotension with evidence of malnutrition, heavy smoking with severe chronic lung disease PLAN: 1. Continue Telemetry 2. Monitor Neuro-checks 3. We will do an echo in the morning 4. Continue telemetry 5. Holter monitor on discharge 6. PFT 7. Counseling for smoking done 8. Advised to gain weight. The patient is under weight. 9. Counseling for diet done. TIME SPENT: More than 30 minutes. Plan and coordination of the patient's care discussed in the presence of nurse. RANI
--- NOTE | 2019-01-05 14:56 | DS ---
DATE OF SERVICE: 01/01/19 FINAL DIAGNOSIS: 1. DIZZINESS 2. NEAR SYNCOPE 3. SEVERE EMPHYSEMA 4. HISTORY OF LUNG MASS (NO LONGER SEES PULMONOLOGY) 5. HYPOTHYROID 6. HYPERTENSION 7. CORONARY ARTERY DISEASE 8. CACHEXIA 9. OSTEOARTHRITIS 10. OSTEOPOROSIS 11. CHRONIC BACK PAIN (PAIN MANAGEMENT) 12. LEFT HIP REPLACEMENT 13. BONE GRAFT, RIGHT FOOT/ANKLE 14. CHOLECYSTECTOMY 15. HYSTERECTOMY 16. REMOVAL RIGHT LUNG MASS 17. CONTINUED SMOKING 18. PFT: 2014. MODERATE COPD LAST VITALS Temp Pulse Resp BP Pulse Ox 98.6 F 62 16 102/68 96 01/01/19 10:00 01/01/19 10:00 01/01/19 10:00 01/01/19 10:00 01/01/19 10:00 DISCHARGE INSTRUCTIONS: AN APPOINTMENT IS SCHEDULED WITH DR. BERG/SHANIA WEBER APRN ON January AT 10 AM MEDICATIONS AT DISCHARGE: Hydrocodone Bitart/Acetaminophen ([place] 5-325) 1 tab PO Q6HR PRN PRN Reason: Pain Last Admin: 01/01/19 09:21 Dose: 1 tab Documented by: Albuterol Sulfate (Proair Hfa) 2 puff IH BID [facility] Last Admin: 01/01/19 09:21 Dose: 2 puff Documented by: Alprazolam (Xanax) 0.5 mg PO BID [facility] Last Admin: 01/01/19 09:21 Dose: 0.5 mg Documented by: Gabapentin (Neurontin) 100 mg PO BID [facility] Last Admin: 01/01/19 09:21 Dose: 100 mg Documented by: Levothyroxine Sodium (Synthroid) 75 mcg PO QDAC [facility] Last Admin: 01/01/19 05:32 Dose: 75 mcg Documented by: Meclizine HCl (Antivert) 25 mg PO TID PRN PRN Reason: Vertigo NEW PRESCRIPTIONS: ANTIVERT 25 MG TID PRN DIZZINESS DISCONTINUED MEDICATIONS: NONE DIET INSTRUCTIONS: REGULAR DIET TOLERATED; EAT REGULAR MEALS AND SNACKS DAILY ACTIVITY: GRADUALLY RESUME ACTIVITY TOLERATED CHANGE POSITIONS SLOWLY AVOID DRIVING IF EXPERIENCING DIZZINESS SMOKING: ADVISED TO STOP SMOKING DISEASE SPECIFIC EDUCATION: DIZZINESS; POSITION CHANGES NUTRITION; EAT REGULAR MEALS AND SNACKS APPOINTMENT HOSPITAL COURSE: This 73-year-old white female who presented to the Emergency Room having dizziness, complained of a near syncopal episode when she stood up to wash dishes. CT of the brain, carotid scan both normal. Telemetry has remained normal during her hospitalization. She was admitted under observation. T4, TSH are normal. She appears to have lost 3 to 4 more pounds since she was last seen in the office. She is cachetic in appearance, has history of cachexia. She is a heavy heavy smoker. I do believe that her weakness is due more to nutritional deficiency and severe emphysema. Chest x-ray did show history of a right lung mass. This is known. She has previously seen Dr. Young.. She stated that she quit going to him on her own after seeing him this summer. She wishes for no further pulmonology referral. She continues to smoke. Thyroid function is normal. Labs have all been normal. Blood pressure has been normal. She showed no signs of orthostatic hypotension. Again, I do believe that her dizziness and episodes are more nutritional as well as maybe some element of vertigo. Dr. Berg performed an echo which showed no acute findings. Will discharge her in stable condition, send her home with Antivert 25 mg t.i.d. p.r.n. Advised her to continue following with Dr. Young although she refuses. Advised her to quit smoking. Discussed diet and nutrition. She refuses a dietary nutritional referral. Discussed the importance of eating three meals a day. Will follow her closely. TIME SPENT: More than 60 minutes. RANI
== END 2019-01-01 15:25 | disposition home or self-care (01) ==
LOC: ED 10:54 → MEDSURG B 13:44 → INTOOBSV 13:44 → MEDSURG B 14:26
PROVIDERS: ADMIT Internal Medicine; ATTEND Internal Medicine
DX: R64 Cachexia; J44.9 Chronic obstructive pulmonary disease, unspecified; I10 Essential (primary) hypertension; R11.0 Nausea; M19.90 Unspecified osteoarthritis, unspecified site; R53.1 Weakness; R06.02 Shortness of breath; M25.512 Pain in left shoulder; I25.10 Atherosclerotic heart disease of native coronary artery without angina pectoris; R55 Syncope and collapse; Z72.0 Tobacco use; R42 Dizziness and giddiness; J43.9 Emphysema, unspecified

== ENCOUNTER 2020-01-25 10:18 | Inpatient (IN) ==
[2020-01-25] MEDS ORDERED: VISTARIL INJ IM PRN (13:45)
[2020-01-25] MEDS ORDERED: NITROSTAT SL PRN (13:45)
[2020-01-25] MEDS ORDERED: ATROPINE SULFATE PFS IVP PRN (13:45)
[2020-01-25] MEDS ORDERED: TYLENOL PO PRN (13:45)
[2020-01-25 13:58] VITALS: BMI 14.6
[2020-01-25 14:20] LABS: HEMATOCRIT 34.9 % (37.0-47.0); HEMOGLOBIN 11.8 g/dl (12.0-16.0); MEAN CORPUSCULAR HEMOGLOBIN 29.2 pg (27.0-31.0); MEAN CORPUSCULAR HGB CONC 33.8 (31.8-35.4); MEAN CORPUSCULAR VOLUME 86.4 fl (81.0-99.0); RDW COEFFICIENT OF VARIATION 13.4 % (11.6-14.8); RED BLOOD COUNT 4.04 10^6/ul (4.20-5.40)
--- NOTE | 2020-01-25 14:23 | DI ---
EXAM: Chest one view HISTORY: Exertional shortness of breath COMPARISON: 09/07/2019 TECHNIQUE: Single view of the chest was performed FINDINGS: Postsurgical changes in the right lung. Lungs are hyperinflated with emphysematous change . Similar right apical opacity/cavitary lesion and right-sided volume loss. No definitive new conso lidation. No large pleural effusion. Heart and mediastinal contour unchanged. IMPRESSION: 1. No definitive new consolidation or interval change. 2. Similar right apical opacity/cavitary lesion. 3. Emphysema 4. Postsurgical changes in the right lung
[2020-01-25 14:33] LABS: ALANINE AMINOTRANSFERASE 46.9 U/L (0-35); ALBUMIN 3.71 g/dL (3.5-5.0); ALKALINE PHOSPHATASE 225.3 U/L (53-141); ASPARTATE AMINO TRANSFERASE 47.3 U/L (14-36); BILIRUBIN,TOTAL 0.8 mg/dL (0.2-1.3); BLOOD UREA NITROGEN 21.5 mg/dL (7-17); CALCIUM 9.68 mg/dL (8.4-10.2); CARBON DIOXIDE 27.4 mmol/L (22-30.0); CREATININE 0.59 mg/dL (0.60-1.30); POTASSIUM 4.72 mmol/L (3.5-5.1); SODIUM 131.7 mmol/L (134.5-145); TOTAL PROTEIN 7.06 g/dL (6.3-8.2)
[2020-01-25 15:03] LABS: THYROID STIMULATING HORMONE 8.25 uIU/L (0.465-4.68)
[2020-01-25 15:03] LABS: PLATELET COUNT 15 10^3/uL (140-440); WHITE BLOOD COUNT 1.29 K/ul (4.6-10.2)
[2020-01-25 15:04] LABS: ANISOCYTOSIS NOT PRESENT (NOT PRESENT)
[2020-01-25] MEDS: CLEOCIN 600 MG/50 ML D5W 600 MG/50 ML BAG IV SCH ×2 (15:07→20:35)
[2020-01-25] MEDS: ANTIVERT PO SCH ×2 (15:07→20:35)
[2020-01-25] MEDS: LASIX IVP SCH (15:11)
[2020-01-25] MEDS: NORCO 7.5-325 PO PRN ×2 (15:23→20:35)
[2020-01-25] MEDS: XANAX PO SCH (20:35)
[2020-01-25] MEDS: NEURONTIN PO SCH (20:35)
[2020-01-25 20:58] LABS: BILIRUBIN,URINE Negative (NEGATIVE); CLARITY,URINE Clear (CLEAR); COLOR,URINE Yellow (YELLOW); GLUCOSE, URINE (UA) Negative (NEGATIVE); KETONES,URINE Negative (NEGATIVE); LEUKOCYTE ESTERASE ,URINE Negative (NEGATIVE); NITRITE,URINE Negative (NEGATIVE); PROTEIN,URINE Negative (NEGATIVE); URINE, BLOOD Negative (NEGATIVE)
[2020-01-25] MEDS ORDERED: NORCO 7.5-325 PO SCH (21:00)
[2020-01-26] MEDS: CLEOCIN 600 MG/50 ML D5W 600 MG/50 ML BAG IV SCH ×3 (05:33→20:57)
[2020-01-26] MEDS: LASIX IVP SCH (05:34)
[2020-01-26] MEDS: NORCO 7.5-325 PO PRN ×3 (05:34→18:30)
[2020-01-26] MEDS: SYNTHROID PO SCH (05:34)
[2020-01-26 06:13] LABS: HEMATOCRIT 28.7 % (37.0-47.0); HEMOGLOBIN 9.7 g/dl (12.0-16.0); MEAN CORPUSCULAR HEMOGLOBIN 28.8 pg (27.0-31.0); MEAN CORPUSCULAR HGB CONC 33.8 (31.8-35.4); MEAN CORPUSCULAR VOLUME 85.2 fl (81.0-99.0); RDW COEFFICIENT OF VARIATION 13.2 % (11.6-14.8); RED BLOOD COUNT 3.37 10^6/ul (4.20-5.40)
[2020-01-26 06:15] LABS: PLATELET COUNT 18 10^3/uL (140-440); WHITE BLOOD COUNT 1.18 K/ul (4.6-10.2)
[2020-01-26 06:16] LABS: ANISOCYTOSIS NOT PRESENT (NOT PRESENT)
[2020-01-26 06:24] LABS: ALANINE AMINOTRANSFERASE 35.9 U/L (0-35); ALBUMIN 2.86 g/dL (3.5-5.0); ALKALINE PHOSPHATASE 166.8 U/L (53-141); ASPARTATE AMINO TRANSFERASE 36.4 U/L (14-36); BILIRUBIN,TOTAL 0.83 mg/dL (0.2-1.3); BLOOD UREA NITROGEN 16.7 mg/dL (7-17); CALCIUM 8.84 mg/dL (8.4-10.2); CARBON DIOXIDE 27.8 mmol/L (22-30.0); CHLORIDE 100.7 mmol/L (98-107); CREATININE 0.54 mg/dL (0.60-1.30); GLUCOSE 98.7 mg/dL (74-106); POTASSIUM 3.99 mmol/L (3.5-5.1); SODIUM 131.9 mmol/L (134.5-145); TOTAL PROTEIN 5.7 g/dL (6.3-8.2)
[2020-01-26 06:30] LABS: PLATELET ESTIMATE 26.6
[2020-01-26] MEDS: NEURONTIN PO SCH ×2 (10:36→20:57)
[2020-01-26] MEDS: ANTIVERT PO SCH ×3 (10:37→20:57)
[2020-01-26] MEDS: ASPIRIN EC PO SCH (10:37)
[2020-01-26] MEDS: MICRO-K CAP PO SCH (10:38)
[2020-01-26] MEDS: XANAX PO SCH ×2 (10:38→20:57)
--- NOTE | 2020-01-26 10:49 | HP ---
DATE OF SERVICE: 01/25/20 REASON FOR HOSPITALIZATION/HISTORY OF PRESENT ILLNESS: 74-year-old female with both legs swelling with blisters, painful and getting worse. She has been seeing a foot doctor in [place]. PAST MEDICAL HISTORY: Right lung mass Pancreatic cancer Hypertension DJD spine Chronic back pain COPD Anemia Neuropathy 02 PAST SURGICAL HISTORY: Hernia Ankle Hip Lung Gallbladder Hysterectomy Appendectomy MENSTRUAL HISTORY: Hysterectomy REVIEW OF SYSTEMS: CONSTITUTIONAL: Fatigue. No fever. HEENT: No sinus drainage, no sore throat. RESPIRATORY: No cough, no congestion. CARDIOVASCULAR: No atypical chest pain for coronary artery disease. No angina, CHF symptoms or palpitations. Shortness of breath as usual. GASTROINTESTINAL: No melena or abdominal pain. No GERD. GENITOURINARY: No hematuria, no polyuria. STREETS AND BUILDINGS DECORATOR: No blackout, no dizziness, no headache, no double vision. Gait - wheelchair. MUSCULOSKELETAL: No osteoarthritis pain, no joint swelling. ENDOCRINE: No weight loss, no weight gain. SKIN: Not dry, no rash. PSYCHIATRIC: Anxious. No depression, no suicidal thoughts, no homicidal thoughts. SOCIAL HISTORY: Smoking - 50 years, quit approximately 2019. . One child. No alcohol use. No drug abuse. FAMILY HISTORY: Father . Mother . Brother(s) one. Sister(s) 2. MEDICATIONS: Potassium 10 mEq, Gabapentin 100 mg b.i.d., Lasix 20 mg daily, Levothyroxine 25 mg, Antivert 25 mg t.i.d., Losartan 50 mg daily, Xanax 0.5 mg b.i.d., [place] 5/325 mg t.i.d., chemotherapy, Albuterol 0.83% neb, Solu-Cortef q.4h p.r.n., Pulmicort 1 mg q.h.s. ALLERGIES: PENICILLIN PHYSICAL EXAMINATION: V/S: Pulses 135, BP 118/80, temperature 97.2, 02 sat 96% on 02 at 2L/NC. Unable to weigh. Height 5'0". GENERAL APPEARANCE: Oriented times three. HEENT: Sinus drainage otherwise normal. NECK: No JVP, no bruits. RESPIRATORY: Severely decreased breath sounds. Lungs are clear. CARDIOVASCULAR: S1, S2, no S3, no murmur. No cyanosis, clubbing. No ascites. GI/ABDOMEN: No tenderness. Bowel sounds are active. EXTREMITIES: Bilateral lower extremity edema +2 with blistering on calves, left foot . Bilateral erytematous, pulses +1, equal. STREETS AND BUILDINGS DECORATOR: Deep tendon reflexes, sensory, motor and gait all normal. RECTAL/PELVIC: Patient refused colonoscopy. Pelvic - advised yearly. Patient refused mammogram. Refused colocare. ASSESSMENT: 1. Bilateral leg edema. 2. Bilateral lower extremity cellulitis. 3. Pancreatic/biliary tree cancer - chemo, [facility] Dr. Burnett/Emir 4. History of obstructive jaundice 5. Syncopal episodes 6. Vertigo 7. Chronic malnutrition 8. Anorexia 9. Polycythemia - secondary 10. Neuropathy 11. Left hip pain 12. COPD 13. Chronic back pain 14. DJD spine 15. History of right lung mass 16. CAD 17. Hypertension 18. L1 compression fracture. PLAN: 1. Admit - PUI 2. Respiratory panel by PCR 3. Routine telemetry orders - no cardiac enzymes 4. CBC, CMP now and daily 5. Elevate legs 6. Lasix 40 mg IV daily 7. Clindamycin 600 mg IV q.8hr (600 mg) 8. [place] 7.5 mg t.i.d. p.r.n. p.o. 9. 02 @ 1-2L 10. Regular diet 11. T4, TSH 12. The patient is DNR. TIME SPENT: More than 70 minutes. MTDD
[2020-01-27] MEDS: CLEOCIN 600 MG/50 ML D5W 600 MG/50 ML BAG IV SCH ×3 (05:11→21:10)
[2020-01-27] MEDS: LASIX IVP SCH (05:40)
[2020-01-27] MEDS: SYNTHROID PO SCH (05:41)
[2020-01-27 05:51] LABS: HEMATOCRIT 30.8 % (37.0-47.0); HEMOGLOBIN 10.5 g/dl (12.0-16.0); MEAN CORPUSCULAR HEMOGLOBIN 29.1 pg (27.0-31.0); MEAN CORPUSCULAR HGB CONC 34.1 (31.8-35.4); MEAN CORPUSCULAR VOLUME 85.3 fl (81.0-99.0); PLATELET COUNT 36 10^3/uL (140-440); RDW COEFFICIENT OF VARIATION 13.3 % (11.6-14.8); RED BLOOD COUNT 3.61 10^6/ul (4.20-5.40)
[2020-01-27 06:01] LABS: ALANINE AMINOTRANSFERASE 31.9 U/L (0-35); ALBUMIN 2.9 g/dL (3.5-5.0); ALKALINE PHOSPHATASE 166.3 U/L (53-141); ASPARTATE AMINO TRANSFERASE 32.8 U/L (14-36); BILIRUBIN,TOTAL 0.77 mg/dL (0.2-1.3); BLOOD UREA NITROGEN 18.5 mg/dL (7-17); CALCIUM 9.07 mg/dL (8.4-10.2); CARBON DIOXIDE 30.4 mmol/L (22-30.0); CHLORIDE 97.8 mmol/L (98-107); CREATININE 0.7 mg/dL (0.60-1.30); GLUCOSE 83.3 mg/dL (74-106); POTASSIUM 3.78 mmol/L (3.5-5.1); SODIUM 133.5 mmol/L (134.5-145); TOTAL PROTEIN 5.86 g/dL (6.3-8.2)
[2020-01-27 06:03] LABS: WHITE BLOOD COUNT 1.65 K/ul (4.6-10.2)
[2020-01-27 06:07] LABS: ANISOCYTOSIS NOT PRESENT (NOT PRESENT)
[2020-01-27] MEDS: NORCO 7.5-325 PO PRN (06:47)
[2020-01-27] MEDS: OXYCODONE PO PRN ×3 (09:53→23:37)
[2020-01-27] MEDS: BACTROBAN TP SCH ×3 (09:54→21:10)
--- NOTE | 2020-01-27 09:55 | PCM.PROG ---
Attending Provider: ATTENDING PROVIDER: Dr. ALIZA BERG This patient is seen with Lorie Fernandez, Nurse Practitioner. DATE OF SERVICE: 01/27/20 SUBJECTIVE: This 74 year old /WHITE F was hospitalized 01/25/20. The patient is in extreme pain. Leg edema has significantly improved. Blisters have opened. Redness on ankles. No eating very well. REVIEW OF SYSTEMS: CONSTITUTIONAL: No night sweats. No fatigue, malaise, lethargy. No fever or chills. weakness. HEENT: Eyes: No visual changes. No eye pain. No eye discharge. ENT: No runny nose. No epistaxis. No sinus pain. No odynophagia. No congestion. RESPIRATORY: No cough, no congestion. No hemoptysis. No shortness of breath. CARDIOVASCULAR: No angina symptoms. No CHF symptoms. No atypical chest pain for CAD. No palpitations. No orthopnea.. GASTROINTESTINAL: No abdominal pain. No nausea or vomiting. No diarrhea or constipation. No hematemesis. No hematochezia. GENITOURINARY: No urgency. No frequency. No dysuria. No hematuria. No obstructive symptoms. No discharge. No pain. No significant abnormal bleeding. MUSCULOSKELETAL: No musculoskeletal pain; no joint swelling. Leg pain. NEUROLOGICAL: Awake, alert, oriented to time, place and person. No headache. No neck pain. No syncope. No seizures. No dizziness. PSYCHIATRIC: Not anxious. No depression. No suicidal thoughts. No homicidal thoughts. SKIN: No rash. No lesions. No wounds. ENDOCRINE: No unexplained weight loss. No weight gain. HEMATOLOGIC/LYMPHATIC: No anemia. No purpura. No petechiae. No prolonged or excessive bleeding. No palpable lymph nodes. PHYSICAL EXAMINATION: GENERAL: The patient is awake, alert and oriented, lying in bed in no distress. VITAL SIGNS: Temperature 97.5 F, Pulse 101, Respiratory Rate 16, BP 120/79, Pulse Ox 96% HEENT: Head normocephalic, atraumatic. Eyes: Extraocular muscles are intact. Pupils are equal, round and reactive to light and accommodation. Ears: No lesions. Nose appeared normal. Throat: No exudate or erythema. NECK: Supple. No JVD, no carotid bruit. No lymphadenopathy or thyromegaly. LUNGS: Diminished breath sounds. Clear to auscultation. Percussion note normal. Chest symmetrical. HEART: S1, S2, no S3. No murmurs. No cyanosis or clubbing. No ascites. Pulses: Dorsalis pedis and posterior tibial pulses +1 to +2 both sides. ABDOMEN: Soft. Non-tender. Bowel sounds active. No CVA tenderness. No mass felt. EXTREMITIES: Bilateral lower extremity wrinkles and open areas with bright pink serous fluid. No edema. Full range of motion of all extremities, equal. NEUROLOGIC: No focal deficit. Cranial nerves II through XII are grossly intact. No headache, no double vision or headache. SKIN: Not dry. Intact. Turgor-normal. Cachectic. Pale. LYMPHATIC: No palpable lymph nodes/no lymphedema. MUSCULOSKELETAL: Normal joints with no swelling. Muscle tone is normal. LAB REVIEW: 01/27/20 05:17 01/27/20 05:17 01/27/20 05:17: Sodium 133.5 L, Potassium 3.78, Chloride 97.8 L, Carbon Dioxide 30.4 H, Anion Gap 9.08, BUN 18.5 H, Creatinine 0.70, Estimated GFR (MDRD) 82.00, BUN/Creatinine Ratio 26.42, Glucose 83.3, Calcium 9.07, Total Bilirubin 0.77, AST 32.8, ALT 31.9, Alkaline Phosphatase 166.3 H, Total Protein 5.86 L, Albumin 2.90 L, Globulin 2.96, Albumin/Globulin Ratio 0.97 01/27/20 05:17: WBC 1.65 L*, RBC 3.61 L, Hgb 10.5 L, Hct 30.8 L, MCV 85.3, MCH 29.1, MCHC 34.1, RDW Coeff of Eddi 13.3, Plt Count 36 L D, Neutrophils % (Manual) 18.0 L, Band Neutrophils % 1.0, Lymphocytes % (Manual) 48.0, Monocytes % (Manual) 30.0 H, Eosinophils % (Manual) 1.0, Basophils % (Manual) 2.0 H, Anisocytosis Not present ASSESSMENT: Please see below. 1. Bilateral lower extremity cellulitis 2. Leg edema, resolved 3. Thrombocytopenia, related to chemo improved. 4. Pancreatic cancer 5. COPD 6. Uncontrollable pain. PLAN: 1. Bactroban BID to lower extremities 2. Oxycodone 5-325mg Q 6 hours PRN 3. Discontinue Eleele Attempted to discuss with the patient with option for palliative care. She is not quite ready. PROGNOSIS: POOR given her diagnosis of pancreatic cancer and multiple comorbidities. Plan and coordination of the patient's care discussed in the presence of Siderographer and nurse. SCRIBED BY: CHRISTIANO VENTURA Aircraft Maintenance Director scribed while in presence of service performed by Dr. Berg/Lorie Fernandez APRN on 01/27/20 ([id number])
[2020-01-27] MEDS: XANAX PO SCH ×2 (10:10→21:09)
[2020-01-27] MEDS: ANTIVERT PO SCH ×3 (10:11→21:09)
[2020-01-27] MEDS: NEURONTIN PO SCH ×2 (10:11→21:09)
[2020-01-27] MEDS: ASPIRIN EC PO SCH (10:11)
[2020-01-27] MEDS: MICRO-K CAP PO SCH (10:11)
--- NOTE | 2020-01-27 14:34 | PN ---
DATE OF SERVICE: 01/25/2020 SUBJECTIVE: The patient was hospitalized with both lower leg pain and swelling. Routine blood test the patient had WBC count of 1,290 with 36% neutrophils and 50% leukocytes. The patient's RBC's normal. Hgb 11.8, plt count of 15,000 on 01/17/2020 when she got her chemotherapy the patient had WBC count of 1,900 with plt count of 128,000. Materials Scientist Demond called Dr. Field office to talk to the office personal. Dr. Field was busy so he will be calling me or the Materials Scientist later on, half an hour. The Nurse Practitioner did call Emir's office and left the message for him to me about the patient's lab test. Dr. Field called approximately in the PM and discussed the patient's case. He remembered it and indicated that chemo therapy has done that to the patient's plt count and WBC count. As the plt count is not 10,000 or less being caused by chemotherapy there was nothing else to do as long as she is asymptomatic, should be left alone. There was no emergency according to him and he will see her on the 06 of February when she is due for another chemo therapy. Indicated that if it needs to be arranged for her to be seen and he said that there was no need. Explained to him that very likely the patient is going to be discharged tomorrow and he indicated that it doesn't matter she can go home. Also agreed with me that she has chronic leg edema likely dependent from keeping the leg hanging and poor nutritional status with hypoproteinemia. TIME SPENT: More than 30 minutes. Plan and coordination of the patient's care discussed in the presence of nurse. RANI
[2020-01-28] MEDS: CLEOCIN 600 MG/50 ML D5W 600 MG/50 ML BAG IV SCH ×3 (05:47→20:25)
[2020-01-28] MEDS: SYNTHROID PO SCH (05:47)
[2020-01-28] MEDS: OXYCODONE PO PRN ×3 (05:47→20:24)
[2020-01-28 05:55] LABS: HEMOGLOBIN 10.2 g/dl (12.0-16.0); MEAN CORPUSCULAR HEMOGLOBIN 29.1 pg (27.0-31.0); MEAN CORPUSCULAR VOLUME 85.7 fl (81.0-99.0); PLATELET COUNT 114 10^3/uL (140-440); RDW COEFFICIENT OF VARIATION 13.9 % (11.6-14.8); WHITE BLOOD COUNT 2.47 K/ul (4.6-10.2)
[2020-01-28 05:58] LABS: ALANINE AMINOTRANSFERASE 25.7 U/L (0-35); ALBUMIN 2.95 g/dL (3.5-5.0); ALKALINE PHOSPHATASE 162.4 U/L (53-141); ASPARTATE AMINO TRANSFERASE 34.8 U/L (14-36); BILIRUBIN,TOTAL 0.59 mg/dL (0.2-1.3); CALCIUM 9.13 mg/dL (8.4-10.2); CARBON DIOXIDE 31.4 mmol/L (22-30.0); CHLORIDE 98.6 mmol/L (98-107); CREATININE 0.61 mg/dL (0.60-1.30); GLUCOSE 102.9 mg/dL (74-106); POTASSIUM 3.78 mmol/L (3.5-5.1); SODIUM 132.3 mmol/L (134.5-145); TOTAL PROTEIN 5.89 g/dL (6.3-8.2)
[2020-01-28 06:09] LABS: ANISOCYTOSIS NOT PRESENT (NOT PRESENT)
[2020-01-28] MEDS: LASIX IVP SCH (06:25)
--- NOTE | 2020-01-28 09:43 | PCM.PROG ---
Attending Provider: ATTENDING PROVIDER: Dr. ALIZA BERG This patient is seen with Lorie Fernandez, Nurse Practitioner. DATE OF SERVICE: 01/28/20 SUBJECTIVE: This 74 year old /WHITE F was hospitalized 01/25/20. The patient's pain has been more controlled after changing medication to Oxycodone. Redness has improved and swelling has resolved. She has a low grade temperature last night of 99.5. We referred to Wound Care and are waiting for appointment. REVIEW OF SYSTEMS: CONSTITUTIONAL: No night sweats. No fatigue, malaise, lethargy. No fever or chills. Weakness. HEENT: Eyes: No visual changes. No eye pain. No eye discharge. ENT: No runny nose. No epistaxis. No sinus pain. No odynophagia. No congestion. RESPIRATORY: No cough, no congestion. No hemoptysis. No shortness of breath. CARDIOVASCULAR: No angina symptoms. No CHF symptoms. No atypical chest pain for CAD. No palpitations. No orthopnea.. GASTROINTESTINAL: No abdominal pain. No nausea or vomiting. No diarrhea or constipation. No hematemesis. No hematochezia. Loss of appetite. GENITOURINARY: No urgency. No frequency. No dysuria. No hematuria. No obstructive symptoms. No discharge. No pain. No significant abnormal bleeding. MUSCULOSKELETAL: No musculoskeletal pain; no joint swelling. Leg pain. NEUROLOGICAL: Awake, alert, oriented to time, place and person. No headache. No neck pain. No syncope. No seizures. No dizziness. PSYCHIATRIC: Not anxious. No depression. No suicidal thoughts. No homicidal thoughts. SKIN: No rash. No lesions. No wounds. ENDOCRINE: No unexplained weight loss. No weight gain. HEMATOLOGIC/LYMPHATIC: No anemia. No purpura. No petechiae. No prolonged or excessive bleeding. No palpable lymph nodes. PHYSICAL EXAMINATION: GENERAL: The patient is awake, alert and oriented, lying in bed in no distress. VITAL SIGNS: Temperature 97.5 F, Pulse 110, Respiratory Rate 20, BP 113/72, Pulse Ox 96% HEENT: Head normocephalic, atraumatic. Eyes: Extraocular muscles are intact. Pupils are equal, round and reactive to light and accommodation. Ears: No lesions. Nose appeared normal. Throat: No exudate or erythema. NECK: Supple. No JVD, no carotid bruit. No lymphadenopathy or thyromegaly. LUNGS: Diminished breath sounds. Clear to auscultation. Percussion note normal. Chest symmetrical. HEART: S1, S2, no S3. No murmurs. No cyanosis or clubbing. No ascites. Pulses: Dorsalis pedis and posterior tibial pulses +1 to +2 both sides. ABDOMEN: Soft. Non-tender. Bowel sounds active. No CVA tenderness. No mass felt. EXTREMITIES: Bilateral lower extremities with improved redness of ankles with significant wrinkling from knees to feet with scaling and open areas. No purulent drainage. Serous drainage only. Full range of motion of all extremities, equal. NEUROLOGIC: No focal deficit. Cranial nerves II through XII are grossly intact. No headache, no double vision or headache. SKIN: Not dry. Intact. Turgor-normal. LYMPHATIC: No palpable lymph nodes/no lymphedema. MUSCULOSKELETAL: Normal joints with no swelling. Muscle tone is normal. LAB REVIEW: 01/28/20 05:17 01/28/20 05:17 01/28/20 05:17: Sodium 132.3 L, Potassium 3.78, Chloride 98.6, Carbon Dioxide 31.4 H, Anion Gap 6.08, BUN 18.0 H, Creatinine 0.61, Estimated GFR (MDRD) 96.00, BUN/Creatinine Ratio 29.50, Glucose 102.9, Calcium 9.13, Total Bilirubin 0.59, AST 34.8, ALT 25.7, Alkaline Phosphatase 162.4 H, Total Protein 5.89 L, Albumin 2.95 L, Globulin 2.94, Albumin/Globulin Ratio 1.00 01/28/20 05:17: WBC 2.47 L, RBC 3.50 L, Hgb 10.2 L, Hct 30.0 L, MCV 85.7, MCH 29.1, MCHC 34.0, RDW Coeff of Eddi 13.9, Plt Count 114 L D, Immature Gran % (Auto) Cloth Framer, Neut % (Auto) Cloth Framer, Lymph % (Auto) Cloth Framer, Kemper % (Auto) Cloth Framer, Eos % (Auto) Cloth Framer, Baso % (Auto) Cloth Framer, Neut # (Auto) Cloth Framer, Lymph # (Auto) Cloth Framer, Kem[place] # (Auto) Cloth Framer, Eos # (Auto) Cloth Framer, Baso # (Auto) Cloth Framer, Immature Gran # (Auto) Cloth Framer, Neutrophils % (Manual) 8.0 L, Band Neutrophils % 4.0, Lymphocytes % (Manual) 36.0, Monocytes % (Manual) 48.0 H, Eosinophils % (Manual) 4.0, Anisocytosis Not present ASSESSMENT: Please see below. 1. Bilateral lower extremity cellulitis 2. Failure to thrive 3. Pancreatic cancer PLAN: 1. Continue IV antibiotics 2. Stop IV Lasix 3. Start PO Lasix tomorrow 4. Keep legs elevated 5. Continue Bactroban Plan and coordination of the patient's care discussed in the presence of Audit Spec and nurse. SCRIBED BY: Tony KINSEYist scribed while in presence of service performed by Dr. Berg/Lorie Fernandez APRN on 01/28/20 ([id number])
[2020-01-28] MEDS: MICRO-K CAP PO SCH (10:19)
[2020-01-28] MEDS: NEURONTIN PO SCH ×2 (10:19→20:24)
[2020-01-28] MEDS: XANAX PO SCH ×2 (10:19→21:16)
[2020-01-28] MEDS: BACTROBAN TP SCH ×3 (10:20→20:25)
[2020-01-28] MEDS: ANTIVERT PO SCH ×3 (10:20→20:24)
[2020-01-28] MEDS: ASPIRIN EC PO SCH (10:20)
--- NOTE | 2020-01-28 13:38 | PN ---
DATE OF SERVICE: 01/26/20 SUBJECTIVE: 74-year-old white female hospitalized with bilateral leg edema, pain, dermatitis with possibility of cellulitis. The patient is feeling better, has less pain. Edema is much less. REVIEW OF SYSTEMS: CONSTITUTIONAL: No night sweats. No fatigue, malaise, lethargy. No fever or chills. HEENT: Eyes: No visual changes. No eye pain. No eye discharge. ENT: No runny nose. No epistaxis. No sinus pain. No sore throat. No odynophagia. No congestion. RESPIRATORY: No cough, no congestion. No hemoptysis. No shortness of breath. CARDIOVASCULAR: No angina symptoms. No CHF symptoms. No atypical chest pain for CAD. No palpitations. No PND. No orthopnea. GASTROINTESTINAL: No abdominal pain. No nausea or vomiting. No diarrhea or constipation. No hematemesis. No hematochezia. GENITOURINARY: Appetite is acceptable. No urgency. No frequency. No dysuria. No hematuria. No obstructive symptoms. No discharge. No pain. No significant abnormal bleeding. MUSCULOSKELETAL: No musculoskeletal pain; no joint swelling. NEUROLOGICAL: No headache. No neck pain. No syncope. No seizures. No dizziness. PSYCHIATRIC: Not anxious. No depression. No suicidal thoughts. No homicidal thoughts. SKIN: No rash. No lesions. No wounds. ENDOCRINE: No unexplained weight loss. No weight gain. HEMATOLOGIC/LYMPHATIC: No anemia. No purpura. No petechiae. No prolonged or excessive bleeding. No palpable lymph nodes. PHYSICAL EXAMINATION: GENERAL: The patient is oriented to time, place and person. VITAL SIGNS: Temperature 98.6, pulse 100, respiratory rate 16, blood pressure 111/62, pulse ox 96%. HEENT: Head normocephalic, atraumatic. Eyes: Extraocular muscles are intact. Pupils are equal, round and reactive to light and accommodation. Ears: No lesions. Nose appeared normal. Throat: No exudate or erythema. NECK: Supple. No JVD, no carotid bruit. No lymphadenopathy or thyromegaly. LUNGS: Decreased breath sounds but clear to auscultation. Percussion note normal. Chest symmetrical. HEART: S1, S2, no S3. No murmurs. No cyanosis or clubbing. No ascites. Pulses: Dorsalis pedis and posterior tibial pulses +1 to +2 bilaterally. ABDOMEN: Soft. Nontender. Bowel sounds active. No CVA tenderness. No mass felt. EXTREMITIES: No edema. Full range of motion of all extremities, equal. NEUROLOGIC: No focal deficit. Cranial nerves II through XII are grossly intact. No headache, no double vision or headache. SKIN: Not dry. Intact. Turgor - normal. LYMPHATIC: No palpable lymph nodes/no lymphedema. MUSCULOSKELETAL: Normal joints with no swelling. Muscle tone is normal. LABS: Hemoglobin 9.7, hematocrit 28, WBC 1,180 platelets, creatinine 0.5, BUN 16, potassium 3.99. ASSESSMENT: 1. Bilateral leg edema with dermatitis, possibility of cellulitis. The patient has alf edema on the legs, some blistering which could be from friction. 2. CA of the pancreatic head. 3. Complications of malourishment with BMI of 14. 3. Chronic lung disease with history of smoking. PLAN: 1. Will continue Clindamycin, Lasix. 2. Continue to monitor the patient's platelets, WBC count. 3. Elevate the legs. Of note: I had a talk with Dr. Field, who is oncologist on the case, and he indicated that the patient had last chemo on 16 of January and this is to be expected. In any case he indicated that thrombocytopenia and leukopenia is secondary to chemotherapy and is to be left alone. He is to see the patient on the 06 of February and didn't think it was for her to be seen again as there is nothing that could be done at the present time. This was indicated in yesterday's note as long as the patient's platelet count is more than 10,000 needs to be left alone and let chemotherapy effects wean off. I called the [facility] and also talked to son, Nathanael and explained to them about thrombocytopenia and leukopenia and what had Dr. Field had said and indicated that her prognosis is poor regardless. Likely date of discharge will be tomorrow. The patient's condition is stable and maybe discharged tomorrow. TIME SPENT: Total time spent 60 minutes. Plan and coordination of the patient's care discussed in the presence of nurse. RANI
[2020-01-29] MEDS: SYNTHROID PO SCH (06:03)
[2020-01-29] MEDS: LASIX TAB PO SCH (06:03)
[2020-01-29] MEDS: CLEOCIN 600 MG/50 ML D5W 600 MG/50 ML BAG IV SCH ×4 (06:03→20:35)
[2020-01-29 06:16] LABS: HEMATOCRIT 30.9 % (37.0-47.0); HEMOGLOBIN 10.3 g/dl (12.0-16.0); MEAN CORPUSCULAR HEMOGLOBIN 28.7 pg (27.0-31.0); MEAN CORPUSCULAR HGB CONC 33.3 (31.8-35.4); MEAN CORPUSCULAR VOLUME 86.1 fl (81.0-99.0); PLATELET COUNT 239 10^3/uL (140-440); RDW COEFFICIENT OF VARIATION 14.4 % (11.6-14.8); RED BLOOD COUNT 3.59 10^6/ul (4.20-5.40); WHITE BLOOD COUNT 4.81 K/ul (4.6-10.2)
[2020-01-29 06:26] LABS: ALANINE AMINOTRANSFERASE 23.7 U/L (0-35); ALBUMIN 3.17 g/dL (3.5-5.0); ASPARTATE AMINO TRANSFERASE 41.7 U/L (14-36); BILIRUBIN,TOTAL 0.6 mg/dL (0.2-1.3); BLOOD UREA NITROGEN 18.2 mg/dL (7-17); CALCIUM 9.36 mg/dL (8.4-10.2); CARBON DIOXIDE 30.8 mmol/L (22-30.0); CHLORIDE 97.9 mmol/L (98-107); CREATININE 0.55 mg/dL (0.60-1.30); GLUCOSE 93.6 mg/dL (74-106); POTASSIUM 3.43 mmol/L (3.5-5.1); SODIUM 133.8 mmol/L (134.5-145); TOTAL PROTEIN 6.16 g/dL (6.3-8.2)
[2020-01-29 06:32] LABS: ANISOCYTOSIS NOT PRESENT (NOT PRESENT)
[2020-01-29] MEDS: BACTROBAN TP SCH ×3 (08:29→20:27)
[2020-01-29] MEDS: ASPIRIN EC PO SCH (08:30)
[2020-01-29] MEDS: MICRO-K CAP PO SCH (08:30)
[2020-01-29] MEDS: XANAX PO SCH ×2 (08:30→20:26)
[2020-01-29] MEDS: NEURONTIN PO SCH ×2 (08:31→20:26)
[2020-01-29] MEDS: ANTIVERT PO SCH ×3 (08:31→20:26)
[2020-01-29] MEDS: OXYCODONE PO PRN (20:26)
[2020-01-30] MEDS: CLEOCIN 600 MG/50 ML D5W 600 MG/50 ML BAG IV SCH (04:58)
[2020-01-30] MEDS: LASIX TAB PO SCH (05:40)
[2020-01-30] MEDS: SYNTHROID PO SCH (05:40)
[2020-01-30 05:43] VITALS: BP 122/76; TEMP 97.6
[2020-01-30] MEDS: MICRO-K CAP PO SCH (08:49)
[2020-01-30] MEDS: NEURONTIN PO SCH (08:49)
[2020-01-30] MEDS: OXYCODONE PO PRN (08:49)
[2020-01-30] MEDS: ANTIVERT PO SCH (08:49)
[2020-01-30] MEDS: ASPIRIN EC PO SCH (08:49)
[2020-01-30] MEDS: XANAX PO SCH (08:49)
--- NOTE | 2020-01-31 09:45 | PN ---
DATE OF SERVICE: 01/27/2020 SUBJECTIVE: 74 year old white female hospitalized with bilateral leg edema and cellulitis. The patient's legs are much better. Still have the pain. Plt count is 36,000 and WBC is 1,600 both better than yesterday. Labs otherwise stable. Continue antibiotics. TIME SPENT: More than 30 minutes. Plan and coordination of the patient's care discussed in the presence of nurse. RANI
--- NOTE | 2020-01-31 10:27 | PN ---
DATE OF SERVICE: 01/28/2020 SUBJECTIVE: 74 year old white female hospitalized with bilateral leg edema and cellulitis. The patient has deep pigmentation of both lower legs from chronic edema. Blistering with cellulitis was present but seems to be subsiding. The patient's plt count is 114,000 and the WBC count is 2,400. The patient's hgb is 10.2 and all of them have improve remarkably. The patient's condition also has improved as far as cellulitis is concerned. The patient was seen and examined with the Nurse Practitioner. Condition the same treatment with antibiotics. TIME SPENT: More than 30 minutes. Plan and coordination of the patient's care discussed in the presence of nurse. RANI
--- NOTE | 2020-02-01 11:19 | DS ---
DATE OF SERVICE: 01/30/2020 FINAL DIAGNOSIS: 1. Bilateral leg cellulitis with blistering and leg edema and pain 2. C of the pancreatic head with retract stent 3. Severe thrombocytopenia and leukopenia on admission likely from chemo therapy given to her 01/17/2020 4. Chronic lung disease, quit smoking in May 2019 5. Dehydration 6. Hypothyroidism 7. Generalized anxiety disorder 8. Generalized osteoarthritis DISCHARGE INSTRUCTIONS: Discharge home. Come back on Friday for followup at 10:00am. Advised to elevate the legs. No aspirins. Apply Bactroban to effected areas. Followup with Dr. Field. Has instructed the patients next chemo therapy in 02/06/2020. MEDICATIONS AT DISCHARGE: Xanax one tablet PO BID Oxycodone 5mg TID PRN for pain Synthroid Meclizine Pulmicort Albuterol inhaler Potassium Gabapentin NEW PRESCRIPTIONS: Lasix as an outpatient when she come back on Friday. DISCONTINUED MEDICATIONS: [place] DIET INSTRUCTIONS: Discussed with the patient. ACTIVITY: Elevate the legs at night and during the day time when she is sitting up higher then hip. SMOKING: Quit smoking May 2019 HOSPITAL COURSE: 74 year old white female hospitalized with bilateral leg edema and blistering infection. The patient during the stay in the hospital was given IV Lasix. She was put on Clomycin 600mg Q 8. The patient's condition improved remarkably. The blistering all subsided. The edema practically went away. Legs were more or less dry with very superficial ulceration at places. No evidence of any active infection. She is going to be discharged on Clomycin 300mg Q 8 hours to be take for 5 days. She is going to use Bactroban ointment to effect areas and elevate her legs. Conditional aspect there was stress to the son. The patient is seen on Friday at that point the patient is going to be started on Lasix. Oxycodone seems to be helping more than [place]. The patient has Neuropathy. She is very malnourished and weighs 80 pounds. Prognosis is poor considering pancreatic cancer. Pancreatic cancer has causes severe obstructive jaundice which was treated with the statin. The patient has responded and now she is on chemotherapy. Discussed the case with Dr. Field her oncologist on admission because the patient had severe thrombocytopenia and leukopenia which has resolved. During the stay in the hospital the was kept aware of it on the phone by me of her condition. He doesn't seem to have much understanding but the son, Nathanael has high expectations not much understanding in spite of repeated explanation given to him. He has been clearly told that the patient's prognosis is extremely poor with multiple medical problems she has besides having malnutrition and severe underweight. CONDITION: Stable PROGNOSIS: Poor TIME SPENT: More than 60 minutes. RANI
--- NOTE | 2020-02-01 11:20 | PN ---
01/25/2020: Level 5 01/26/2020: Extensive 01/27/2020: Intermediate 01/28/2020: Intermediate 01/29/2020: Intermediate 01/30/2020: D as in discharge MTDD
--- NOTE | 2020-02-02 11:26 | PN ---
DATE OF SERVICE: 01/29/20 SUBJECTIVE: 74-year-old white female hospitalized with bilateral leg swelling and cellulitis. The leg edema has subsided. Cellulitis practically under control. Redness is practically gone with healing of superficial ulcers. The patient's mental status fluctuates in and out with sleepiness. REVIEW OF SYSTEMS: CONSTITUTIONAL: No night sweats. No fatigue, malaise, lethargy. No fever or chills. HEENT: Eyes: No visual changes. No eye pain. No eye discharge. ENT: No runny nose. No epistaxis. No sinus pain. No sore throat. No odynophagia. No congestion. RESPIRATORY: No cough, no congestion. No hemoptysis. No shortness of breath. CARDIOVASCULAR: No angina symptoms. No CHF symptoms. No atypical chest pain for CAD. No palpitations. No PND. No orthopnea. GASTROINTESTINAL: No abdominal pain. No nausea or vomiting. No diarrhea or constipation. No hematemesis. No hematochezia. GENITOURINARY: No urgency. No frequency. No dysuria. No hematuria. No obstructive symptoms. No discharge. No pain. No significant abnormal bleeding. MUSCULOSKELETAL: No leg pain like what she had before. NEUROLOGICAL: No headache. No neck pain. No syncope. No seizures. No dizziness. PSYCHIATRIC: Not anxious. No depression. No suicidal thoughts. No homicidal thoughts. SKIN: As above. ENDOCRINE: No unexplained weight loss. No weight gain. HEMATOLOGIC/LYMPHATIC: No anemia. No purpura. No petechiae. No prolonged or excessive bleeding. No palpable lymph nodes. PHYSICAL EXAMINATION: VITAL SIGNS: Temperature 97.8, pulse 100, respiratory rate 18, blood pressure 120/77, pulse ox 100%. HEENT: Head normocephalic, atraumatic. Eyes: Extraocular muscles are intact. Pupils are equal, round and reactive to light and accommodation. Ears: No lesions. Nose appeared normal. Throat: No exudate or erythema. NECK: Supple. No JVD, no carotid bruit. No lymphadenopathy or thyromegaly. LUNGS: Decreased breath sounds but clear to auscultation. Percussion note normal. Chest symmetrical. HEART: S1, S2, no S3. No murmurs. No cyanosis or clubbing. No ascites. Pulses: Dorsalis pedis and posterior tibial pulses +1 to +2 bilaterally. ABDOMEN: Soft. Nontender. Bowel sounds active. No CVA tenderness. No mass felt. EXTREMITIES: No edema. Full range of motion of all extremities, equal. NEUROLOGIC: No focal deficit. Cranial nerves II through XII are grossly intact. No headache, no double vision or headache. SKIN: Not dry. Intact. Turgor - normal. LYMPHATIC: No palpable lymph nodes/no lymphedema. MUSCULOSKELETAL: Normal joints with no swelling. Muscle tone is normal. LABS: Hemoglobin 10.3, hematocrit 30, WBC 4,800, normal differential. Creatinine 0.5, BUN 18, potassium 3.4. ASSESSMENT: 1. Cellulitis and leg edema has resolved. PLAN: 1. Continue antibiotics. 2. Continue Bactroban. 3. The patient's leukopenia and thrombocytopenia practically has resolved with WBC count of 4,800 with platelet count of 239,000. The patient's condition is stable, improving. The patient's prognosis is guarded. 4. The patient has persistant sinus tachycardia with pulse rate more than 100. Will do echo and evaluate the cardiovascular status or left ventricular function. TIME SPENT: More than 30 minutes. Plan and coordination of the patient's care discussed in the presence of nurse. RANI
--- NOTE | 2020-02-02 11:35 | PN ---
DATE OF SERVICE: 01/30/20 - DISCHARGE NOTE SUBJECTIVE: 74-year-old white female hospitalized with bilateral leg swelling and cellulitis. The patient has chronic leg edema with deep pigmentation. Condition has improved remarkably. There are no blisters. There is no drainage. No evidence of active cellulitis. REVIEW OF SYSTEMS: CONSTITUTIONAL: No night sweats. No fatigue, malaise, lethargy. No fever or chills. HEENT: Eyes: No visual changes. No eye pain. No eye discharge. ENT: No runny nose. No epistaxis. No sinus pain. No sore throat. No odynophagia. No congestion. RESPIRATORY: No cough, no congestion. No hemoptysis. No shortness of breath. CARDIOVASCULAR: No angina symptoms. No CHF symptoms. No atypical chest pain for CAD. No palpitations. No PND. No orthopnea. GASTROINTESTINAL: No abdominal pain. No nausea or vomiting. No diarrhea or constipation. No hematemesis. No hematochezia. GENITOURINARY: No urgency. No frequency. No dysuria. No hematuria. No obstructive symptoms. No discharge. No pain. No significant abnormal bleeding. MUSCULOSKELETAL: Pain is much less, Oxycodone helping. NEUROLOGICAL: No headache. No neck pain. No syncope. No seizures. No dizziness. PSYCHIATRIC: Not anxious. No depression. No suicidal thoughts. No homicidal thoughts. SKIN: No rash. No lesions. No wounds. ENDOCRINE: No unexplained weight loss. No weight gain. HEMATOLOGIC/LYMPHATIC: No anemia. No purpura. No petechiae. No prolonged or excessive bleeding. No palpable lymph nodes. PHYSICAL EXAMINATION: VITAL SIGNS: Temperature 97.6, pulse 110, respiratory rate 18, BP 122/76, pulse ox 95%. HEENT: Head normocephalic, atraumatic. Eyes: Extraocular muscles are intact. Pupils are equal, round and reactive to light and accommodation. Ears: No lesions. Nose appeared normal. Throat: No exudate or erythema. NECK: Supple. No JVD, no carotid bruit. No lymphadenopathy or thyromegaly. LUNGS: Decreased breath sounds but clear to auscultation. Percussion note normal. Chest symmetrical. HEART: S1, S2, no S3. No murmurs. No cyanosis or clubbing. No ascites. Pulses: Dorsalis pedis and posterior tibial pulses +1 to +2 bilaterally. ABDOMEN: Soft. Nontender. Bowel sounds active. No CVA tenderness. No mass felt. EXTREMITIES: Dark pigmentation is healed up. Superficial ulcers throughout both legs with no evidence of infection, mild irritation on the left. Full range of motion of all extremities, equal. NEUROLOGIC: No focal deficit. Cranial nerves II through XII are grossly intact. No headache, no double vision or headache. SKIN: Not dry. Intact. Turgor - normal. LYMPHATIC: No palpable lymph nodes/no lymphedema. MUSCULOSKELETAL: Normal joints with no swelling. Muscle tone is normal. ASSESSMENT: 1. Leg edema, cellulitis, blistering all resolved. PLAN: 1. Will discharge the patient home on Cleomycin. 2. The patient had thrombocytopenia and leukopenia, moderate to severe which has resolved on its own. The patient has been on chemotherapy and because of that the patient sees assignment editor/oncologist, Dr. Field. 3. I am going to see the patient on Friday morning. 4. The patient is strongly advised to elevate the legs, antibiotics. 5. She needs to continue Xanax, potassium, Albuterol, Oxycodone, Levothyroxine, Meclizine. 6. Lasix will be given when the patient comes back on followup. 7. Bactroban ointment given to the patient. CONDITION AT TIME OF DISCHARGE: Stable. 3. TIME SPENT: More than 30 minutes. Plan and coordination of the patient's care discussed in the presence of nurse. RANI
--- NOTE | 2020-02-02 11:38 | PN ---
BILLING 01/25/20 ADMISSION DAY LEVEL 5 01/26/20 EXTENSIVE 01/27/20 EXTENSIVE 01/28/20 INTERMEDIATE 01/29/20 INTERMEDIATE 01/30/20 DISCHARGE MTDD
--- NOTE | 2020-02-02 13:35 | ECHO2D ---
Date of Exam: 01/30/2020 Ordering Physician: DR. ALIZA BERG Room #: 105 Reason for Echo: SOB, COPD, PANCREATIC CANCER, SINUS TACHYCARDIA M-Mode Normal Adult Results LV Dimensions Normal Adult Results AoV Opening excursions >1.6 >1.6 LVEDD-base- 3.5-5.8 4.0 Ao root dimensions 2.0-3.7 2.7 LVESD-base- 3.1-4.6 L. Atrium dimensions 1.9-3.8 3.2 Post. Wall thickness 0.8-1.1 1.0 IV septum (thickness) 0.7-1.2 0.9 Post. Wall excursion 0.72-1.3 NORMAL Septal motion NORMAL Systolic motion R. Ventricular cavity 1.5-2.0 4.0 LVEF 60% 66% Paradoxical septal wall motion NORMAL 2-D : 2-D M Mode Echocardiogram was performed using apical four chamber and left parasternal long and short axis views. Mitral, tricuspid and aortic valves appear to be normal. Contractility of the left ventricle seems to be normal, so is the cavity size. Left atrial cavity size and aortic root appear to be normal. There is no pericardial effusion. There is no thrombus noted in the left ventricle or left atrial cavity. ENLARGED RIGHT VENTRICLE CAVITY M-MODE: MV: MITRAL VALVE PROLAPSE LATE SYSTOLIC AV: NORMAL TV: NORMAL PV: CHAMBER SIZE: ENLARGED RIGHT VENTRICLE CAVITY WALL MOTION: NORMAL PERICARDIUM: NORMAL INTERPRETATION: 1. RIGHT CAVITY ENLARGEMENT 2. NORMAL LEFT VENTRICLE CONTRACTILITY 3. MAYBE MITRAL VALVE PROLAPSE--NO MITRAL REGURGITATION MTDD
== END 2020-01-30 13:19 | disposition home or self-care (01) | DRG 603 ==
LOC: MEDSURG B 10:18
PROVIDERS: ADMIT Internal Medicine; ATTEND Internal Medicine